=== PATIENT | female | born 1940 | race Caucasian/White ===

== ENCOUNTER → 2017-04-21 | Outpatient (CLI) | payer OTHER | LOC: BMCIMAGING 08:38 | PROVIDERS: ATTEND Internal Medicine | DX: Z12.31 Encounter for screening mammogram for malignant neoplasm of breast (principal) | CPT/HCPCS: G0202 ==

== ENCOUNTER → 2017-05-28 | Outpatient (CLI) | payer OTHER | LOC: BMCIMAGING 10:51 | PROVIDERS: ATTEND Internal Medicine | DX: N64.4 Mastodynia (principal) ==

== ENCOUNTER 2017-06-29 21:33 | Inpatient (IN) | payer OTHER ==
[2017-06-29] MEDS ORDERED: ONDANSETRON 4 MG/2 ML VIAL IVP ONE (21:59)
[2017-06-29] MEDS ORDERED: NS 1,000 ML IV ONE (21:59)
--- NOTE | 2017-06-29 22:01 | EDPHY ---
H & P Smoking Status: Former smoker Time Seen by Provider: 06/29/17 21:46 HPI/ROS: CHIEF COMPLAINT: Abdominal pain HISTORY OF PRESENT ILLNESS: Patient presents thinking she has symptoms which are identical to multiple previous bowel obstructions. She had pain starting today at 1900, followed by a bowel movement at 8:00 p.m. But then followed by nausea and no vomiting. She feels thirsty and dehydrated. Pain is mostly in lower abdomen and feels just like previous SBO. Worse with oral intake. Does not radiate. Not associated with urinary symptoms fever. No diarrhea. Mild to moderate now. She came in earlier than she has previously. REVIEW OF SYSTEMS: Eye: no change in vision ENT: no sore throat, chronic hard of hearing with her right hearing aid dysfunctional today Cardiac: no chest pain or syncope Pulmonary: no cough or SOB Abdomen: HPI. Musculoskeletal: no back pain Skin: no rash Neuro: no headache Constitutional: no fever : no urinary symptoms A comprehensive 10 point review of systems is otherwise negative aside from elements mentioned in the history of present illness. PAST MEDICAL HISTORY: Includes high cholesterol, hypothyroid, colon resection, hysterectomy. Bowel obstruction multiple times. Appendectomy and gallbladder surgery. Surgeon is Dr. Rolando Cobos Social history: Here with her daughter General Appearance: Alert and conversant, cooperative. Eyes: No scleral icterus. ENT, Mouth: Normal mucous membranes. Respiratory: Normal respiratory effort, breath sounds equal, lungs are clear to auscultation. Cardiovascular: Regular rate and rhythm. Gastrointestinal: Multiple well-healed abdominal lesions, bowel sounds are present, a little distended. Bilateral lower abdominal tenderness right greater than left without rebound or guarding. Neurological: Alert, face symmetric, normal motor and sensory in extremities. Skin: Warm and dry, no rashes. Musculoskeletal: No peripheral edema. Psychiatric: Not agitated. Emergency Department course/MDM: The Zofran 4 mg IV, normal saline IV, i-STAT and abdominal and pelvis CT with IV contrast to evaluate for possible bowel obstruction. 2300: preliminary interpretation of CT per myself shows SBO, discussed with patient, dilaudid 0.5mg IV for pain, IVF, NPO, admission, Dr. Lloyd to speak with surgeon relationship consultant for José Manuel Cobos. (Otoniel Alonzo) Constitutional: Initial Vital Signs Temperature (C) 36.4 C 06/29/17 21:35 Heart Rate 68 06/29/17 21:35 Respiratory Rate 18 06/29/17 21:35 Blood Pressure 163/83 H 06/29/17 21:35 O2 Sat (%) 98 06/29/17 21:35 O2 Delivery Mode Room Air Allergies/Adverse Reactions: No Known Allergies Allergy (Verified 12/16/15 20:36) Home Medications: Medication Instructions Recorded Estradiol [Vivelle-Dot 0.05MG (*)] 0.05 mg TD PRN PRN 12/04/11 Levothyroxine [Synthroid 50 mcg 50 mcg PO SUSA 12/04/11 (*)] [place]-3 Fatty Acids [Fish Oil 1000 1,000 mg PO DAILY 01/25/14 mg (*)] Rosuvastatin Calcium [Crestor 20mg 20 mg PO DAILY 01/25/14 (*)] Cyanocobalamin [Vitamin B12 (*)] 1,000 mcg PO DAILY 12/16/15 Multivitamins [Multivitamin (*)] 1 each PO DAILY 12/16/15 metFORMIN HCL [Glucophage 500 mg 500 mg PO BIDMEAL 12/17/15 (*)] Levothyroxine [Synthroid 75 mcg 75 mcg PO MOTUWETHFR 12/19/15 (*)] Hydrocodone/APAP 5/325 [[place] 1 tab PO Q4HRS PRN #20 tab 12/20/15 5/325 (*)] Medical Decision Making - Diagnostics Imaging: Discussed imaging studies w/ mechanic Radiologist - Diagnostics Imaging Results: Imaging Impressions Abdomen CT 06/29/17 22:07 Impression: 1. Findings consistent with small bowel obstruction are seen with a transition point at the approximate level of the distal jejunum in the midline in the lower abdomen. 2. See above report for additional findings. Results called and discussed with Dr. Lloyd on 06/29/2017 at 23:15 ED Course/Re-evaluation: 2314: The spoke with Dr. Duong about this patient. CT scan shows bowel obstruction. She will see and evaluate the patient. Plan is for admission for SBO. 2316: CT scan back Dr. Putnam called results to ak CT scan and pelvis with IV contrast shows SBO. Dr. Duong aware. (Kee Lloyd) Differential Diagnosis: Differential considered including but not limited to constipation, bowel obstruction, intestinal perforation, UTI (Otoniel Alonzo) - Data Points Laboratory Results: Laboratory Results 06/29/17 22:00 06/29/17 22:00 06/29/17 06/29/17 06/29/17 22:04 22:00 22:00 WBC 17.56 10^3/uL H 10^3/uL (3.80-9.50) RBC 4.72 10^6/uL 10^6/uL (4.18-5.33) Hgb 14.1 g/dL g/dL (12.6-16.3) POC Hgb 14.3 gm/dL gm/dL (12.6-16.3) Hct 42.4 % % (38.0-47.0) POC Hct 42 % % (38-47) MCV 89.8 fL fL (81.5-99.8) MCH 29.9 pg pg (27.9-34.1) MCHC 33.3 g/dL g/dL (32.4-36.7) RDW 12.9 % % (11.5-15.2) Plt Count 174 10^3/uL 10^3/uL (150-400) MPV 10.8 fL fL (8.7-11.7) Neut % (Auto) 80.6 % H % (39.3-74.2) Lymph % (Auto) 10.9 % L % (15.0-45.0) [place] % (Auto) 5.8 % % (4.5-13.0) Eos % (Auto) 1.6 % % (0.6-7.6) Baso % (Auto) 0.6 % % (0.3-1.7) Nucleat RBC Rel Count 0.0 % % (0.0-0.2) Absolute Neuts (auto) 14.15 10^3/uL H 10^3/uL (1.70-6.50) Absolute Lymphs (auto) 1.92 10^3/uL 10^3/uL (1.00-3.00) Absolute Monos (auto) 1.02 10^3/uL H 10^3/uL (0.30-0.80) Absolute Eos (auto) 0.28 10^3/uL 10^3/uL (0.03-0.40) Absolute Basos (auto) 0.10 10^3/uL 10^3/uL (0.02-0.10) Absolute Nucleated RBC 0.00 10^3/uL 10^3/uL (0-0.01) Immature Gran % 0.5 % % (0.0-1.1) Immature Gran # 0.09 10^3/uL 10^3/uL (0.00-0.10) POC Sodium 144 mEq/L mEq/L (135-145) Sodium 139 mEq/L mEq/L (135-145) POC Potassium 3.8 mEq/L mEq/L (3.3-5.0) Potassium 4.2 mEq/L mEq/L (3.5-5.2) POC Chloride 103 mEq/L mEq/L (97-110) Chloride 102 mEq/L mEq/L (97-110) Carbon Dioxide 26 mEq/l mEq/l (22-31) Anion Gap 11 mEq/L mEq/L (8-16) POC BUN 28 mg/dL H mg/dL (7-23) BUN 26 mg/dL H mg/dL (7-23) Creatinine 0.6 mg/dL mg/dL (0.6-1.0) POC Creatinine 0.8 mg/dL mg/dL (0.6-1.0) Estimated GFR > 60 Glucose 115 mg/dL H mg/dL (70-100) POC Glucose 128 mg/dL H mg/dL (70-100) Calcium 10.9 mg/dL H mg/dL (8.5-10.4) Phosphorus 3.6 mg/dL mg/dL (2.5-4.5) Medications Given: Discontinued Medications Hydromorphone HCl (Dilaudid) 0.5 mg IVP EDNOW ONE Stop: 06/29/17 23:04 Last Admin: 06/29/17 23:09 Dose: 0.5 mg Sodium Chloride (Ns) 1,000 mls @ 0 mls/hr IV EDNOW ONE; Wide Open PRN Reason: Protocol Stop: 06/29/17 22:00 Last Admin: 06/29/17 22:02 Dose: 1,000 mls Ondansetron HCl (Zofran) 4 mg IVP EDNOW ONE Stop: 06/29/17 22:00 Last Admin: 06/29/17 23:09 Dose: 4 mg Point of Care Test Results: 06/29/17 22:04 POC Sodium 144 POC Potassium 3.8 POC Chloride 103 POC BUN 28 H POC Creatinine 0.8 POC Glucose 128 H Departure - Departure Disposition: [facility] Inpatient Acute Clinical Impression: Bowel obstruction Qualifiers: Intestinal obstruction type: unspecified Intestinal obstruction extent: unspecified extent Qualified Code(s): K56.609 - Unspecified intestinal obstruction, unspecified as to partial versus complete obstruction Condition: Good
[2017-06-29 22:11] LABS: PLATELET COUNT 174 10^3/uL (150-400)
[2017-06-29] MEDS ORDERED: IOPAMIDOL (ISOVUE-300) 100 ML BTL ONE ×2 (22:20→22:48)
[2017-06-29] MEDS ORDERED: HYDROmorphONE/DILAUDID 1 MG/ML INJ IVP ONE (23:03)
[2017-06-29] MEDS ORDERED: HYDROmorphONE/DILAUDID 2 MG/ML INJ ONE (23:05)
[2017-06-29] MEDS ORDERED: ONDANSETRON 4 MG/2 ML VIAL IVP PRN (23:20)
--- NOTE | 2017-06-30 00:01 | GHP ---
[f rep st] HISTORY AND PHYSICAL DATE OF ADMISSION: 06/29/2017 CHIEF COMPLAINT: Small bowel obstruction. HISTORY OF PRESENT ILLNESS: The patient is a 77-year-old woman, well known to Dr. Cobos, who has had multiple abdominal surgeries. She had a normal bowel movement this afternoon and a small one with flatus this evening, but then started feeling abdominal pain, reminiscent of her previous obstruction. She had associated nausea, but no emesis, no fevers, no sick contacts. The only thing that is different is that she was passing flatus this evening. She had a CT scan, which showed a small bowel obstruction with a transition point at the distal jejunum. She is eager to speak with Dr. Cobos. PAST MEDICAL HISTORY: Diabetes mellitus, hypertension, hypothyroidism. PAST SURGICAL HISTORY: Includes colectomy, cholecystectomy, hysterectomy, appendectomy, lysis of adhesions. MEDICATIONS: Estradiol, Crestor, metformin, Synthroid. ALLERGIES: No known drug allergies. SOCIAL HISTORY: She does not smoke. Her daughter is with her. REVIEW OF SYSTEMS: 10-point review of systems negative. PHYSICAL EXAMINATION: VITAL SIGNS: 36.4, 68, 163/83, 18, 98%. GENERAL: Pleasant well-nourished woman, sitting up in exam bed. She is very well groomed. Her daughter is at bedside. HEENT: Normocephalic. She does have hearing deficits. Her right hearing aid is currently being worked on. Pupils equal and round. No scleral icterus. Mucous membranes dry. LUNGS: Clear to auscultation bilaterally. No increased work of breathing. CARDIAC: Regular rate. ABDOMEN: Hypoactive bowel sounds. She has multiple abdominal incisions that are all healed. She reports that her abdomen is the same girth, although she appears slightly distended to me. She is soft and minimally tender. SKIN: Warm and dry. No obvious rashes. PSYCH: Mood and affect normal. NEURO: Grossly intact. RESULTS REVIEWED: I personally reviewed the results of her CT scan, and can see fluid-filled loops of small bowel, decompressed distally. IMPRESSION AND PLAN: A 77-year-old woman with a partial small bowel obstruction. We will keep her n.p.o. Dr. Cobos will see her in the morning. I have consulted the hospitalist to assist with her comorbidities. /[id number]/MODL MTDD
[2017-06-30] MEDS ORDERED: HYDROmorphONE/DILAUDID 1 MG/ML INJ IVP ONE ×2 (01:02→01:04)
[2017-06-30] MEDS ORDERED: PROMETHAZINE HCL 25 MG/ML INJ IVP ONE (01:03)
[2017-06-30] MEDS ORDERED: HYDROmorphONE/DILAUDID 2 MG/ML INJ ONE (01:06)
[2017-06-30] MEDS: D5W 1/2 NS W/ 20 KCl/L 1,000 ML IV SCH (01:13)
[2017-06-30] MEDS ORDERED: D50W 25 GM/50 ML SYR IVP PRN (08:07)
--- NOTE | 2017-06-30 08:21 | PDHOSCONS ---
History and Physical - Chief Complaint Abdominal pain. Hospitalist consult for medical management - History of Present Illness Date of service 06/30/2017 Hospitalist consult requested by Dr. Duong. Reason for consult: Medical management. HPI - pleasant 77-year-old female with history of prediabetes, hypothyroidism, hyperlipidemia who presents with with complaints of acute lower abdominal pain, nausea vomiting admitted for SBO. Medical issues by problem: 1. preDM - patient currently taking metformin twice daily. She reports blood sugars range low 120s in the morning. no polydipsia/polyuria. 2. HTN - patient previously treated with MORRIS-inhibitor and diuretic therapy. She reports that her blood pressures despite this have remained elevated. She denies any chest pain headache no shortness of breath. 3. HLD - on statin therapy 4. hypothyroidism - patient reports control on levothyroxine supplementation. But no increased fatigue or change in energy. History Information - Allergies/Home Medication List Allergies/Adverse Reactions: No Known Allergies Allergy (Verified 12/16/15 20:36) Home Medications: Levothyroxine [Synthroid 50 mcg (*)] 50 mcg PO SUSA 12/04/11 [Last Taken ] [place]-3 Fatty Acids [Fish Oil 1000 mg (*)] 1,000 mg PO DAILY 01/25/14 [Last Taken 06/29/17] Rosuvastatin Calcium [Crestor 20mg (*)] 20 mg PO DAILY 01/25/14 [Last Taken 10/11] Cyanocobalamin [Vitamin B12 (*)] 1,000 mcg PO DAILY 12/16/15 [Last Taken ] Multivitamins [Multivitamin (*)] 1 each PO DAILY 12/16/15 [Last Taken 06/29/17] metFORMIN HCL [Glucophage 500 mg (*)] 500 mg PO BIDMEAL 12/17/15 [Last Taken 10/11 18:00] Levothyroxine [Synthroid 75 mcg (*)] 75 mcg PO MOTUWETHFR 12/19/15 [Last Taken 06/29/17] Tretinoin [Retin-A] 1 loli TP DAILY PRN 06/30/17 [Last Taken Unknown] I have personally reviewed and updated: family history, medical history, social history, surgical history - Past Medical History Additional medical history: HTN, HLD, preDM. Hypothyroidism, history of SBO x 2 - Surgical History Additional surgical history: Hysterectomy, cholecystectomy, appendectomy, lysis of adhesions - Family History Additional family history: Sister with breast cancer - Social History Smoking Status: Former smoker Alcohol Use: None Drug Use: None Additional social history: Patient is . Review of Systems Review of Systems: ROS: 10pt was reviewed & negative except for what was stated in HPI & below Physical Exam Physical Exam: Selected Entries 06/29/17 21:35 Blood Pressure Automatic Method Heart Rate 68 Respiratory 18 Rate O2 Sat (%) 98 Temperature (C) 36.4 C Blood Pressure 163/83 H Mean Arterial 109 H Pressure (MAP) O2 Delivery Room Air Mode Temperature Oral Source Temp Pulse Resp BP Pulse Ox 36.7 C 53 L 16 122/75 H 99 06/30/17 02:04 06/30/17 06:00 06/30/17 06:00 06/30/17 06:00 06/30/17 06:00 O2 (L/minute) 2 Constitutional: no apparent distress, No uncomfortable Eyes: PERRL, anicteric sclera, EOMI (Grossly intact) Ears, Nose, Mouth, Throat: dry mucous membranes, No poor dentition Cardiovascular: regular rate and rhythym, no murmur, rub, or gallop, No edema Peripheral Pulses: 1+: dorsalis-pedis (R), dorsalis-pedis (L) Respiratory: no respiratory distress, no rales or rhonchi, clear to auscultation Gastrointestinal: soft, non-tender abdomen, no palpable masses, distension, other (Hypoactive bowel sounds), No tenderness, No guarding Genitourinary: no bladder tenderness, No philippe in urethra Skin: warm, normal color, no rashes or abrasions Musculoskeletal: full muscle strength, No generalized weakness Neurologic: AAOx3, sensation intact bilaterally, other (Grossly nonfocal), No facial droop Psychiatric: interacting appropriately, not anxious, not encephalopathic, thought process linear Lab Data & Imaging Review 06/29/17 22:00 06/30/17 06:30 WBC 17.56 10^3/uL (3.80-9.50) H 06/29/17 22:00 RBC 4.72 10^6/uL (4.18-5.33) 06/29/17 22:00 Hgb 14.1 g/dL (12.6-16.3) 06/29/17 22:00 POC Hgb 14.3 gm/dL (12.6-16.3) 06/29/17 22:04 Hct 42.4 % (38.0-47.0) 06/29/17 22:00 POC Hct 42 % (38-47) 06/29/17 22:04 MCV 89.8 fL (81.5-99.8) 06/29/17 22:00 MCH 29.9 pg (27.9-34.1) 06/29/17 22:00 MCHC 33.3 g/dL (32.4-36.7) 06/29/17 22:00 RDW 12.9 % (11.5-15.2) 06/29/17 22:00 Plt Count 174 10^3/uL (150-400) 06/29/17 22:00 MPV 10.8 fL (8.7-11.7) 06/29/17 22:00 Neut % (Auto) 80.6 % (39.3-74.2) H 06/29/17 22:00 Lymph % (Auto) 10.9 % (15.0-45.0) L 06/29/17 22:00 [place] % (Auto) 5.8 % (4.5-13.0) 06/29/17 22:00 Eos % (Auto) 1.6 % (0.6-7.6) 06/29/17 22:00 Baso % (Auto) 0.6 % (0.3-1.7) 06/29/17 22:00 Nucleat RBC Rel Count 0.0 % (0.0-0.2) 06/29/17 22:00 Absolute Neuts (auto) 14.15 10^3/uL (1.70-6.50) H 06/29/17 22:00 Absolute Lymphs (auto) 1.92 10^3/uL (1.00-3.00) 06/29/17 22:00 Absolute Monos (auto) 1.02 10^3/uL (0.30-0.80) H 06/29/17 22:00 Absolute Eos (auto) 0.28 10^3/uL (0.03-0.40) 06/29/17 22:00 Absolute Basos (auto) 0.10 10^3/uL (0.02-0.10) 06/29/17 22:00 Absolute Nucleated RBC 0.00 10^3/uL (0-0.01) 06/29/17 22:00 Immature Gran % 0.5 % (0.0-1.1) 06/29/17 22:00 Immature Gran # 0.09 10^3/uL (0.00-0.10) 06/29/17 22:00 POC Sodium 144 mEq/L (135-145) 06/29/17 22:04 Sodium 144 mEq/L (135-145) 06/30/17 06:30 POC Potassium 3.8 mEq/L (3.3-5.0) 06/29/17 22:04 Potassium 4.9 mEq/L (3.5-5.2) 06/30/17 06:30 POC Chloride 103 mEq/L (97-110) 06/29/17 22:04 Chloride 112 mEq/L (97-110) H D 06/30/17 06:30 Carbon Dioxide 24 mEq/l (22-31) 06/30/17 06:30 Anion Gap 8 mEq/L (8-16) 06/30/17 06:30 POC BUN 28 mg/dL (7-23) H 06/29/17 22:04 BUN 18 mg/dL (7-23) 06/30/17 06:30 Creatinine 0.6 mg/dL (0.6-1.0) 06/30/17 06:30 POC Creatinine 0.8 mg/dL (0.6-1.0) 06/29/17 22:04 Estimated GFR > 60 06/30/17 06:30 Glucose 147 mg/dL (70-100) H 06/30/17 06:30 POC Glucose 128 mg/dL (70-100) H 06/29/17 22:04 Calcium 8.8 mg/dL (8.5-10.4) D 06/30/17 06:30 Phosphorus 3.6 mg/dL (2.5-4.5) 06/29/17 22:00 Imaging Review: CT Abd Pel W IV Contrast ___ CT Scan of the Abdomen and Pelvis With Contrast Indication: Abdominal pain in a 77-year-old female with a history of prior abdominal surgeries and previous small bowel obstruction comparison to the prior CT the abdomen and pelvis December 16, 2015. Technique: Multidetector CT images of the abdomen and pelvis were obtained following the uneventful intravenous administration of 85 mL Isovue-300 contrast. Axial images are obtained at 5 mm intervals and reformatted at 1.5 mm thickness. The examination is reviewed on the workstation at multiple window/level settings. Sagittal and coronal reformations are performed. Dose reduction techniques were utilized for this examination. Abdomen: Lung bases: Normal. No pleural fluid. Dilated small bowel loops are seen involving the jejunum with the point of transition near the junction of the jejunum with the ileum in the low abdomen. The distal small bowel is decompressed. No free air is seen and no ascites is identified. There is mild enhancement of the oliveros of the dilated small bowel loops. Scattered surgical clips are seen throughout the abdomen. Liver: Normal. Biliary system: The gallbladder is surgically absent. There is minimal intrahepatic biliary ductal dilatation. Spleen: Normal. Pancreas: Normal. Adrenals: Normal. Kidneys: No obstruction or solid masses. Abdominal Aorta: No aneurysm. No bowel obstruction, ascites, or retroperitoneal lymphadenopathy. CT Pelvis Findings: The bladder contour is normal. Extensive sigmoid diverticulosis is seen without diverticulitis. Surgical clips are seen in the right lower quadrant compatible with a history of prior appendectomy. Degenerative changes are seen in the spine. Impression: 1. Findings consistent with small bowel obstruction are seen with a transition point at the approximate level of the distal jejunum in the midline in the lower abdomen. 2. See above report for additional findings. Results called and discussed with Dr. Lloyd on 06/29/2017 at 23:15 Assessment & Plan Assessment: 77 yo F admitted with SBO hospitalist consult for medical management. pre-DM - mildly elevated sugars. Patient will be placed on a low-dose sliding scale. Accu-Cheks a.c. HS while NPO. Resume metformin when diet advanced. Benign essential hypertension - currently NPO. Hydralazine p.r.n. HLD - holding statin at this time. Hypothyroidism - resume levothyroxine 1 diet is advanced. Small Bowel obstruction (Acute) - as per surgical team. At this time patient is not requiring NG tube decompression and her pain has improved. FEN - IVF as per primary team. monitor BS with D5 in fluid. electrolyte monitoring and replacement prn. NPO status. PPX - SCDs. anticoagulation as per surgery team. Thank you for consultation we will continue to follow along with you.
[2017-06-30] MEDS ORDERED: hydrALAZINE 20 MG/ML VIAL IVP PRN (08:27)
[2017-06-30] MEDS ORDERED: HYDROmorphONE/DILAUDID 1 MG/ML INJ IVP PRN (08:31)
[2017-06-30] MEDS ORDERED: HYDROmorphONE/DILAUDID 2 MG/ML INJ IVP PRN (11:06)
[2017-06-30] MEDS: INSULIN LISPRO 100 UNIT/ML SC SCH ×2 (13:12→18:00)
--- NOTE | 2017-06-30 15:59 | PDMN ---
Medical Necessity Medical necessity: Change to IP, as of 06/30/17, per PA; los >2 mn for ongoing management of SBO requiring further monitoring, bowel rest, IVFs & possible surgical intervention; hx htn; per progress note & order 06/30/17
--- NOTE | 2017-06-30 17:50 | SOAPPROG ---
SOAP Progress Note Assessment/Plan: Assessment: 77-YEAR-OLD FEMALE WITH RECURRENT SMALL BOWEL OBSTRUCTION/STATUS POST COLECTOMY AND MULTIPLE SMALL-BOWEL OBSTRUCTIONS WHICH HAVE RESOLVED ON THEIR OWN. SHE DID HAVE SURGERY 2 YEARS AGO FOR SMALL BOWEL OBSTRUCTION WITH MULTIPLE ADHESIONS AND COUNTER ABDOMEN SOFT MINIMALLY TENDER WITH POSITIVE BOWEL SOUNDS/NO EMESIS OR DIARRHEA/ SMALL BM YESTERDAY CHEST CLEAR COR REGULAR RHYTHM Plan: LAPAROSCOPY AND/OR LAPAROTOMY FOR SMALL BOWEL OBSTRUCTION IN THE A.M./ RISKS AND OPTIONS FULLY DISCUSSED 06/30/17 17:49 Objective: Vital Signs Temp Pulse Resp BP Pulse Ox 36.4 C 59 L 18 98/67 L 94 06/30/17 15:14 06/30/17 15:14 06/30/17 15:14 06/30/17 15:14 06/30/17 15:14 ICD10 Worksheet Patient Problems: Problems Problem Status Onset Bowel obstruction Acute Abdominal pain Active Essential hypertension Active Hyperglycemia Active Hypothyroidism Active
[2017-07-01] MEDS: D5W 1/2 NS W/ 20 KCl/L 1,000 ML IV SCH (06:11)
--- NOTE | 2017-07-01 08:24 | SOAPPROG ---
SOAP Progress Note Assessment/Plan: Assessment: 77 y/o female with partial small bowel obstruction S: Doing pretty well today. Denies n/v. Mild tenderness in abdomen. Passing flatus, but no BM today. O: Afebrile Alert No WOB Abdomen: softly distended, mild tenderness to palpation, +BS Plan: pending abdominal xray, plan for surgery this afternoon for diagnostic laparoscopy. 07/01/17 08:20 Objective: Vital Signs Temp Pulse Resp BP Pulse Ox 36.6 C 59 L 16 151/80 H 93 07/01/17 07:53 07/01/17 07:53 07/01/17 07:53 07/01/17 07:53 07/01/17 07:53 06/30/17 07/01/17 07/02/17 05:59 05:59 05:59 Intake Total 0 1005 Output Total 1500 Balance -1500 1005 ICD10 Worksheet Patient Problems: Problems Problem Status Onset Bowel obstruction Acute Abdominal pain Active Essential hypertension Active Hyperglycemia Active Hypothyroidism Active
[2017-07-01] MEDS: INSULIN LISPRO 100 UNIT/ML SC SCH ×3 (08:39→18:11)
[2017-07-01] MEDS ORDERED: cefOXitin SODIUM 2 GM in STERILE WATER INJ 21 ML IV ONE (11:00)
[2017-07-01] MEDS ORDERED: LR 1,000 ML IV ONE (13:20)
--- NOTE | 2017-07-01 14:11 | HOSPPROG ---
Hospitalist Progress Note Assessment/Plan: * recurrent partial SBO * diagnostic laparoscopy today * early diabetes * hold metformin * hyperlipidemia Subjective: feels better. passing gas Objective: Vital Signs Temp Pulse Resp BP Pulse Ox 36.5 C 61 16 167/75 H 93 07/01/17 14:05 07/01/17 14:05 07/01/17 14:05 07/01/17 14:05 07/01/17 14:05 06/30/17 07/01/17 07/02/17 05:59 05:59 05:59 Intake Total 0 1005 Output Total 1500 Balance -1500 1005 - Physical Exam Constitutional: no apparent distress, appears nourished, not in pain Eyes: anicteric sclera, EOMI Respiratory: no respiratory distress Neurologic: AAOx3 Psychiatric: interacting appropriately, not anxious, not encephalopathic, thought process linear ICD10 Worksheet Patient Problems: Problems Problem Status Onset Bowel obstruction Acute Abdominal pain Active Essential hypertension Active Hyperglycemia Active Hypothyroidism Active
[2017-07-01] MEDS ORDERED: HEPARIN 1000 UNIT/1 ML MDV ONE (14:55)
[2017-07-01] MEDS ORDERED: BUPIVACAINE 0.5% 10 ML SDV ONE ×2 (14:55)
[2017-07-01] MEDS ORDERED: ceFAZolin 1 GM/5 ML SYR ONE (14:56)
--- NOTE | 2017-07-01 15:07 | ASMTCMCOM ---
CM Note CM Note Notes: Patient admitted for SBO. She will have an diagnostic laparotomy with Dr Cobos today. She has a history of bowel issues and surgeries. Patient lives independently and has a supportive daughter nearby. I do not anticipate any discharge needs, but Case Management can assist if any arise. Date Signed: 07/01/2017 03:06 PM Electronically Signed By:Velma Becerra RN
[2017-07-01] MEDS ORDERED: MIDAZOLAM 2 MG/2 ML VIAL IVP ONE (15:25)
--- NOTE | 2017-07-01 15:29 | PDANEPAE ---
ANE History of Present Illness Exploratory laparoscopy possible laparotomy ANE Past Medical History - Cardiovascular History Hx Hypertension: No Hx Arrhythmias: No Hx Chest Pain: No Hx Coronary Artery / Peripheral Vascular Disease: No - Pulmonary History Hx COPD: No Hx Asthma/Reactive Airway Disease: No Hx Recent Upper Respiratory Infection: No Hx Oxygen in Use at Home: No Hx Sleep Apnea: No Sleep Apnea Screening Result - Last Documented: Negative - Endocrine History Hx Diabetes: Yes Hypothyroid: No Obesity: no - Chronic Pain History Chronic Pain: No ANE Review of Systems Review of systems is: negative Review of Systems: - Exercise capacity METS (RN): 4 METS ANE Patient History - Allergies Allergies/Adverse Reactions: No Known Allergies Allergy (Verified 12/16/15 20:36) - Home Medications Home Medications: Levothyroxine [Synthroid 50 mcg (*)] 50 mcg PO SUSA 12/04/11 [Last Taken ] [place]-3 Fatty Acids [Fish Oil 1000 mg (*)] 1,000 mg PO DAILY 01/25/14 [Last Taken 06/29/17] Rosuvastatin Calcium [Crestor 20mg (*)] 20 mg PO DAILY 01/25/14 [Last Taken 10/11] Cyanocobalamin [Vitamin B12 (*)] 1,000 mcg PO DAILY 12/16/15 [Last Taken ] Multivitamins [Multivitamin (*)] 1 each PO DAILY 12/16/15 [Last Taken 06/29/17] metFORMIN HCL [Glucophage 500 mg (*)] 500 mg PO BIDMEAL 12/17/15 [Last Taken 10/11 18:00] Levothyroxine [Synthroid 75 mcg (*)] 75 mcg PO MOTUWETHFR 12/19/15 [Last Taken 06/29/17] Tretinoin [Retin-A] 1 loli TP DAILY PRN 06/30/17 [Last Taken Unknown] - NPO status NPO Status: no food or drink >8 hours NPO Since - Liquids (Date): 06/30/17 NPO Since - Liquids (Time): 15:00 NPO Since - Solids (Date): 06/30/17 NPO Since - Solids (Time): 15:00 - Smoking Hx Smoking Status: Former smoker - Alcohol Use Alcohol Use: None - Family Anes Hx Family Anes Hx: none ANE Labs/Vital Signs - Labs Result Diagrams: 06/29/17 22:00 06/30/17 06:30 - Vital Signs Blood Pressure: 167/75 Heart Rate: 61 Respiratory Rate: 16 O2 Sat (%): 93 Height: 167.64 cm Weight: 58.967 kg ANE Physical Exam - Airway Neck exam: FROM Mallampati Score: Class 2 Mouth exam: normal dental/mouth exam - Pulmonary Pulmonary: no respiratory distress - Cardiovascular Cardiovascular: regular rate and rhythym - ASA Status ASA Status: III ANE Anesthesia Plan Anesthesia Plan: general endotracheal anesthesia
[2017-07-01] MEDS ORDERED: cefOXitin SODIUM 1 GM in STERILE WATER INJ 10.5 ML IV ONE (15:32)
[2017-07-01] MEDS ORDERED: PROPOFOL/EMULSION 500 MG/50 ML BOTTLE IV ONE (15:42)
[2017-07-01] MEDS ORDERED: fentaNYL 250 MCG/5 ML INJ ONE (15:42)
[2017-07-01] MEDS ORDERED: PROPOFOL 200 MG/20 ML VIAL ONE ×3 (15:42→18:18)
[2017-07-01] MEDS ORDERED: ONDANSETRON 4 MG/2 ML VIAL ONE (17:17)
[2017-07-01] MEDS ORDERED: LIDOCAINE 2% JELLY 5 ML TUBE ONE (17:17)
[2017-07-01] MEDS ORDERED: DEXAMETHASONE 4 MG/ML VIAL ONE (17:17)
[2017-07-01] MEDS ORDERED: GLYCOPYRROLATE 0.2 MG/1 ML VIAL ONE (17:17)
[2017-07-01] MEDS ORDERED: ROCURONIUM 50 MG/5 ML VIAL ONE ×2 (17:17)
[2017-07-01] MEDS ORDERED: HYDROmorphONE/DILAUDID 2 MG/ML INJ ONE (17:58)
[2017-07-01] MEDS ORDERED: fentaNYL 100 MCG/2 ML INJ ONE (18:18)
[2017-07-01] MEDS ORDERED: KETOROLAC 30 MG/1 ML SDV ONE (18:43)
[2017-07-01] MEDS ORDERED: SUGAMMADEX SODIUM 200 MG/2 ML VIAL IVP ONE (18:57)
--- NOTE | 2017-07-01 19:17 | POSTOPPROG ---
Post Op Note Date of Operation: 07/01/17 Surgeon: Rolando Cobos Anesthesiologist: KEVIN Anesthesia: GET(General Endotracheal) Pre-op Diagnosis: SBO Post-op Diagnosis: SAME Indication: PAIN Procedure: LAPAROSCOPY, LAPAROTOMY, LYSIS ADHESIONS Findings: DIFFUSE ADHESIONS WITH MULTIPLE TIGHT AREAS Inf/Abcess present in the surg proc area at time of surgery?: No Depth: Organ Space EBL: 50-100 Complications: 0
[2017-07-01] MEDS ORDERED: HYDROmorphONE/DILAUDID 2 MG/ML INJ IVP PRN ×2 (19:18→19:23)
[2017-07-01] MEDS ORDERED: PROMETHAZINE HCL 25 MG/ML INJ IVP PRN (19:23)
[2017-07-01] MEDS ORDERED: NALOXONE HCL 0.4 MG/ML INJ IVP PRN (19:23)
[2017-07-01] MEDS ORDERED: ONDANSETRON 4 MG/2 ML VIAL IVP PRN (19:23)
[2017-07-01] MEDS ORDERED: DIAZEPAM 5 MG/ML 1 ML SYR IVP PRN (19:23)
[2017-07-01] MEDS ORDERED: fentaNYL 100 MCG/2 ML INJ IVP PRN (19:23)
[2017-07-01] MEDS: cefOXitin SODIUM 1 GM in STERILE WATER INJ 10.5 ML IV SCH (22:05)
[2017-07-02] MEDS: KETOROLAC 15 MG/1 ML SDV IVP SCH ×4 (00:07→17:50)
[2017-07-02] MEDS: cefOXitin SODIUM 1 GM in STERILE WATER INJ 10.5 ML IV SCH ×4 (04:43→21:50)
[2017-07-02 05:35] LABS: PLATELET COUNT 157 10^3/uL (150-400)
[2017-07-02] MEDS: INSULIN LISPRO 100 UNIT/ML SC SCH ×3 (06:18→18:46)
[2017-07-02] MEDS: D5W 1/2 NS W/ 20 KCl/L 1,000 ML IV SCH ×2 (06:19→17:42)
[2017-07-02] MEDS: ENOXAPARIN 40 MG/0.4 ML SYR SC SCH (08:08)
--- NOTE | 2017-07-02 08:43 | SOAPPROG ---
SOAP Progress Note Assessment/Plan: Assessment: 77 y/o female with partial small bowel obstruction Now s/p laparoscopy/laparotomy with lysis of adhesions S: Doing pretty well today. Getting up out of bed when I saw her. Denies n/ v. Mild tenderness in abdomen. No flatus or BM yet. Eager to start drinking fluids. O: Afebrile Alert No WOB Abdomen: softly distended, mild tenderness to palpation, no bowel sounds yet NG tube to suction with about 100cc out. Plan: Discontinue philippe catheter. Continue NG tube to suction. NPO for now. 07/02/17 08:43 Objective: Vital Signs Temp Pulse Resp BP Pulse Ox 37.3 C 66 20 144/67 H 98 07/02/17 07:24 07/02/17 07:24 07/02/17 07:24 07/02/17 07:24 07/02/17 07:24 Laboratory Results 07/02/17 05:06 07/02/17 05:06 07/01/17 07/02/17 07/03/17 05:59 05:59 05:59 Intake Total 0 3369.5 195.5 Output Total 1500 800 300 Balance -1500 2569.5 -104.5 ICD10 Worksheet Patient Problems: Problems Problem Status Onset Bowel obstruction Acute Abdominal pain Active Essential hypertension Active Hyperglycemia Active Hypothyroidism Active
--- NOTE | 2017-07-02 10:15 | HOSPPROG ---
Hospitalist Progress Note Assessment/Plan: #Recurrent SBO: s/p lap, adhesion lysis 07/01 -NPO, NG to suction #pre-Diabetes: metformin #HLD: statin once taking po #Hypothyroidism: LT4 once taking PO #HTN: PRN IV hydral #Diet: NPO Please call if any questions Subjective: having small amount flatus. No N/V Objective: Vital Signs Temp Pulse Resp BP Pulse Ox 37.3 C 66 20 144/67 H 98 07/02/17 07:24 07/02/17 07:24 07/02/17 07:24 07/02/17 07:24 07/02/17 07:24 Laboratory Results 07/02/17 05:06 07/02/17 05:06 07/01/17 07/02/17 07/03/17 05:59 05:59 05:59 Intake Total 0 3369.5 195.5 Output Total 1500 800 300 Balance -1500 2569.5 -104.5 - Physical Exam Constitutional: no apparent distress Eyes: PERRL Ears, Nose, Mouth, Throat: moist mucous membranes, other (NG in place) Cardiovascular: regular rate and rhythym Respiratory: no respiratory distress Gastrointestinal: tenderness (mild TTP), other (quiet BS throughout) Skin: warm Musculoskeletal: full muscle strength Neurologic: AAOx3 Psychiatric: interacting appropriately ICD10 Worksheet Patient Problems: Problems Problem Status Onset Abdominal pain Active Hypothyroidism Active Essential hypertension Active Hyperglycemia Active Bowel obstruction Acute
[2017-07-02] MEDS ORDERED: ALBUMIN 5% 1,000 ML IV ONE (18:30)
[2017-07-03] MEDS: KETOROLAC 15 MG/1 ML SDV IVP SCH ×5 (00:58→23:00)
[2017-07-03] MEDS: INSULIN LISPRO 100 UNIT/ML SC SCH ×3 (07:45→18:16)
--- NOTE | 2017-07-03 08:41 | HOSPPROG ---
Hospitalist Progress Note Assessment/Plan: #Recurrent SBO: s/p lap, adhesion lysis 07/01 -BM yesterday. Trial clears today #pre-Diabetes: metformin once taking PO #HLD: statin once taking po #Hypothyroidism: LT4 once taking PO #HTN: PRN IV hydral #Diet: clears Please call if any questions Subjective: 800cc out of NG last night. BM yesterday Objective: Vital Signs Temp Pulse Resp BP Pulse Ox 36.9 C 65 16 135/69 H 94 07/03/17 07:49 07/03/17 07:49 07/03/17 07:49 07/03/17 07:49 07/03/17 07:49 Laboratory Results 07/02/17 05:06 07/02/17 05:06 07/02/17 07/03/17 07/04/17 05:59 05:59 06:59 Intake Total 3369.5 1253.5 Output Total 800 1900 Balance 2569.5 -646.5 - Physical Exam Constitutional: no apparent distress Eyes: PERRL Ears, Nose, Mouth, Throat: other (NG in place) Cardiovascular: regular rate and rhythym, no murmur, rub, or gallop Respiratory: no respiratory distress, no rales or rhonchi Gastrointestinal: distension (no TTP or rebound) Genitourinary: no bladder fullness Skin: warm Musculoskeletal: full muscle strength Neurologic: AAOx3, CN II-XII Intact Psychiatric: interacting appropriately ICD10 Worksheet Patient Problems: Problems Problem Status Onset Bowel obstruction Acute Abdominal pain Active Essential hypertension Active Hyperglycemia Active Hypothyroidism Active
[2017-07-03] MEDS: D5W 1/2 NS W/ 20 KCl/L 1,000 ML IV SCH (08:44)
[2017-07-03] MEDS: ENOXAPARIN 40 MG/0.4 ML SYR SC SCH (08:44)
[2017-07-03] MEDS ORDERED: ZOLPIDEM TARTRATE 5 MG TAB PO PRN (11:15)
--- NOTE | 2017-07-03 11:51 | SOAPPROG ---
SOAP Progress Note Assessment/Plan: Assessment: 77-YEAR-OLD FEMALE WITH RECURRENT SMALL BOWEL OBSTRUCTION/STATUS POST COLECTOMY AND MULTIPLE SMALL-BOWEL OBSTRUCTIONS WHICH HAVE RESOLVED ON THEIR OWN. SHE DID HAVE SURGERY 2 YEARS AGO FOR SMALL BOWEL OBSTRUCTION WITH MULTIPLE ADHESIONS AND COUNTER ABDOMEN SOFT MINIMALLY TENDER WITH POSITIVE BOWEL SOUNDS/NO EMESIS OR DIARRHEA/ SMALL BM YESTERDAY CHEST CLEAR COR REGULAR RHYTHM Plan: LAPAROSCOPY AND/OR LAPAROTOMY FOR SMALL BOWEL OBSTRUCTION IN THE A.M./ RISKS AND OPTIONS FULLY DISCUSSED 06/30/17 17:49 07/03/17 11:50 STATUS POST EXTENSIVE ADHESIOLYSIS/WOUND OKAY/ABDOMEN SOFT/POSITIVE BOWEL SOUNDS /SOME FLATUS AND BM AFEBRILE/NG LARGE OUTPUT LAST NIGHT BUT A MUCH LESS TODAY AND TOLERATING IT CLAMPED WILL TRY CLEAR LIQUIDS AND DC NG OF TOLERATING Objective: Vital Signs Temp Pulse Resp BP Pulse Ox 37.1 C 67 20 102/62 90 L 07/03/17 11:23 07/03/17 11:23 07/03/17 11:23 07/03/17 11:23 07/03/17 11:23 Laboratory Results 07/02/17 05:06 07/02/17 05:06 07/02/17 07/03/17 07/04/17 05:59 05:59 06:59 Intake Total 3369.5 1253.5 Output Total 800 1900 Balance 2569.5 -646.5 ICD10 Worksheet Patient Problems: Problems Problem Status Onset Bowel obstruction Acute Abdominal pain Active Essential hypertension Active Hyperglycemia Active Hypothyroidism Active
--- NOTE | 2017-07-03 14:51 | ASMTCMCOM ---
CM Note CM Note Notes: Spoke w/RN, plan remains the same, she talita dc home w/support of dtr when medically stable. CM available for any changes. DC Plan: Independent Date Signed: 07/03/2017 02:50 PM Electronically Signed By:Roslyn Borges RN
[2017-07-04] MEDS: KETOROLAC 15 MG/1 ML SDV IVP SCH ×2 (06:33→12:06)
[2017-07-04] MEDS: INSULIN LISPRO 100 UNIT/ML SC SCH ×2 (08:15→11:15)
[2017-07-04] MEDS: ENOXAPARIN 40 MG/0.4 ML SYR SC SCH (09:29)
--- NOTE | 2017-07-04 10:15 | POSTANESTH ---
Post Anesthetic Evaluation Cardiovascular Status: Normal, Stable Respiratory Status: Normal, Stable Level of Consciousness/Mental Status: Can Participate in Eval Pain Control: Adequate, Prn Tx Ordered Nausea/Vomiting Control: Adequate, Prn Tx Ordered Complications Possibly Related to Anesthesia: None Noted
[2017-07-04 11:14] VITALS: BP 159/77; PULSE 67; RESP 18; TEMP 98; O2SAT 96
--- NOTE | 2017-07-04 11:48 | SOAPPROG ---
SOAP Progress Note Assessment/Plan: Assessment: 77-YEAR-OLD FEMALE WITH RECURRENT SMALL BOWEL OBSTRUCTION/STATUS POST COLECTOMY AND MULTIPLE SMALL-BOWEL OBSTRUCTIONS WHICH HAVE RESOLVED ON THEIR OWN. SHE DID HAVE SURGERY 2 YEARS AGO FOR SMALL BOWEL OBSTRUCTION WITH MULTIPLE ADHESIONS AND COUNTER ABDOMEN SOFT MINIMALLY TENDER WITH POSITIVE BOWEL SOUNDS/NO EMESIS OR DIARRHEA/ SMALL BM YESTERDAY CHEST CLEAR COR REGULAR RHYTHM Plan: LAPAROSCOPY AND/OR LAPAROTOMY FOR SMALL BOWEL OBSTRUCTION IN THE A.M./ RISKS AND OPTIONS FULLY DISCUSSED 06/30/17 17:49 07/03/17 11:50 STATUS POST EXTENSIVE ADHESIOLYSIS/WOUND OKAY/ABDOMEN SOFT/POSITIVE BOWEL SOUNDS /SOME FLATUS AND BM AFEBRILE/NG LARGE OUTPUT LAST NIGHT BUT A MUCH LESS TODAY AND TOLERATING IT CLAMPED WILL TRY CLEAR LIQUIDS AND DC NG OF TOLERATING 07/04/17 11:47 LABS OKAY/AFEBRILE/WOUND OKAY/ABDOMEN SOFT WITH POSITIVE BOWEL SOUNDS, SLIGHTLY DISTENDED/POSITIVE FLATUS AND BOWEL MOVEMENT HOME TODAY IF EATING WELL Objective: Vital Signs Temp Pulse Resp BP Pulse Ox 36.7 C 67 18 159/77 H 96 07/04/17 11:10 07/04/17 11:10 07/04/17 11:10 07/04/17 11:10 07/04/17 11:10 Laboratory Results 07/04/17 04:51 07/04/17 04:51 07/03/17 07/04/17 07/05/17 04:59 05:59 05:59 Intake Total Output Total 700 Balance -700 ICD10 Worksheet Patient Problems: Problems Problem Status Onset Bowel obstruction Acute Abdominal pain Active Essential hypertension Active Hyperglycemia Active Hypothyroidism Active
--- NOTE | 2017-07-04 18:02 | ASMTLACE ---
HERMELINDOE Length of stay for Answers: 4-6 days current admission Acuity / Level of Answers: Yes Care: Did the patient have an inpatient admission? Comorbidities - select Answers: Other Notes: rectal prolapse all that apply # of Emergency department Answers: 1-2 visits in the last 6 months Score: 9 Date Signed: 07/04/2017 03:15 PM Electronically Signed By:Selena Ayala RN
--- NOTE | 2017-07-05 12:05 | GDS ---
[f rep st] DISCHARGE SUMMARY DISCHARGE DIAGNOSES: 1. Recurrent small bowel obstruction, status post laparoscopic adhesion lysis. 2. Prediabetes. 3. Hyperlipidemia. 4. Hypothyroidism. 5. Hypertension. HISTORY OF PRESENT ILLNESS: A pleasant 77-year-old female with history of prediabetes, hypothyroidis m, who is known to Dr. Cobos, who has had multiple abdominal surgeries. She had a normal bowel movem ent day of admission, but then started feeling abdominal pain reminding her prior obstruction. She h as associated nausea, but no emesis. No fevers or ill contacts. She had a CT scan that showed small bowel obstruction with a transition point at the distal jejunum. HOSPITAL COURSE BY PROBLEM: 1. Recurrent small bowel obstruction: Status post lap and adhesion lysis 07/01. She had NG in plac e with resolution of symptoms, was having bowel movements, and tolerating p.o. at time of discharge. 2. Prediabetes. Resume metformin. 3. Hyperlipidemia, statin. 4. Hypothyroidism, on levothyroxine. 5. Hypertension, not on medications outpatient. 6. Acute abdominal pain. Percocet per Dr. Cobos. PHYSICAL EXAM: VITAL SIGNS: Date of discharge, temperature 36.7, blood pressure 159/77, heart rate 67, respiration 18; 96% on room air. GENERAL: Smiling, sitting up in bed. No acute distress. HEEN T: PERRLA. EOMI. Oropharynx clear. CV: Regular rate and rhythm. No murmurs, gallops, rubs. DEIDRA GS: Clear. ABDOMEN: Mildly distended, but soft. Positive bowel sounds. No tenderness. : No F oley. MUSCULOSKELETAL: 5/5 upper and lower extremity strength. NEURO: 2 through 12 intact. PSYCH: Alert and oriented x3. /[id number]/MODL
--- NOTE | 2017-07-11 17:43 | GOP ---
[f rep st] OPERATIVE REPORT DATE OF OPERATION: 07/01/2017 SURGEON: Rolando Cobos MD PERINATOLOGY PHYSICIAN: There was no embroidery assistant. PREOPERATIVE DIAGNOSIS: Recurrent small bowel obstruction. POSTOPERATIVE DIAGNOSIS: Recurrent small bowel obstruction. PROCEDURE PERFORMED: Laparotomy with adhesiolysis. FINDINGS: Patient was found to have extensive adhesions from the ligament of Treitz all way to the i leocecal valve. There was no single site of obstruction but multiple kinks in the small bowel. ESTIMATED BLOOD LOSS: Less than 300 cc. DESCRIPTION OF PROCEDURE: The patient was taken to the operating room, where she received satisfacto ry general endotracheal anesthesia. She was prepped and draped in usual sterile fashion. A midline abdominal incision was made and carried through the old scar. The abdomen was very carefully entered , avoiding any enterotomies. The abdomen was carefully freed up from extensive adhesions. At the to p of the incision at the transverse colon, there was a small serosal injury which was closed with 3-0 Vicryl interrupted sutures with no true enterotomy. The small bowel was then carefully mobilized an d adhesions lysed from the ligament of Treitz all the way down to the cecum. This was quite tedious and extensive, but was eventually accomplished after an hour and a half of dissection. All kinks and twists were freed up and relieved. Hemostasis was assured. The wound was copiously irrigated. The re was no compromised bowel or any mass in the bowel needing resection. The abdomen was then closed with a running #1 PDS suture reinforced periodically with #1 Vicryl interrupted sutures. Some Sepraf ilm was placed under the midline incision and over the omentum, and the wound was eventually closed. Subcu was closed with a running 2-0 Vicryl and the skin with skin sj. She tolerated the proced ure well. COMPLICATIONS: There were no complications. DISPOSITION: She was taken to the recovery room in good condition. /[id number]/MODL
== END 2017-07-04 15:40 | disposition home or self-care (01) | DRG 337 ==
LOC: INTOOBSV 23:14 → F3E 06-30 12:03 → OBSVTOIN 06-30 15:51
PROVIDERS: ADMIT Surgery; ATTEND Surgery
PROC: 0DN84ZZ Release Small Intestine, Percutaneous Endoscopic Approach (ICD-10-PCS; principal; 2017-07-01 14:00)
DX: K56.600 Partial intestinal obstruction, unspecified as to cause (principal); E11.9 Type 2 diabetes mellitus without complications; I10 Essential (primary) hypertension; E03.9 Hypothyroidism, unspecified; Z87.891 Personal history of nicotine dependence; E78.00 Pure hypercholesterolemia, unspecified
CPT/HCPCS: 82947-QW; 96374; 97161-GP; 97165-GO; C1765; G0378; G8978-GP-CI; G8979-GP-CI; G8980-GP-CI; G8987-GO-CI; G8988-GO-CI; J0694; J1100; J1170; J1650; J1815; J1885; J2250; J2405; J2550; J2704; J3010; P9041; Q9967

== ENCOUNTER 2017-07-07 17:22 | Inpatient (IN) | payer OTHER ==
--- NOTE | 2017-07-07 17:31 | EDPHY ---
H & P Time Seen by Provider: 07/07/17 17:30 HPI/ROS: CHIEF COMPLAINT: Bloating abdominal pain and vomiting HISTORY OF PRESENT ILLNESS: Patient was discharged on Wednesday after a bowel obstruction surgery by Dr. Cobos. Has been eating and drinking but having gradually increasing abdominal bloating and pain culminating today and vomiting in the emergency department. Symptoms severe. Not helped by 2 enemas, had 2 small bowel movements. Not associated with fever or chills. Symptoms severe currently. Worse with trying to eat or drink anything. REVIEW OF SYSTEMS: Eye: no change in vision ENT: no sore throat Cardiac: no chest pain or syncope Pulmonary: no cough or SOB Abdomen: HPI Musculoskeletal: no back pain Skin: no rash Neuro: no headache Constitutional: no fever : no urinary symptoms A comprehensive 10 point review of systems is otherwise negative aside from elements mentioned in the history of present illness. PAST MEDICAL HISTORY: Discharge summary dated 07/04/2017 personally reviewed includes recurrent small-bowel obstruction with laparoscopic lysis of adhesions , pre diabetes, hyperlipidemia, hypothyroid, hypertension. Appendectomy, cholecystectomy, 10 bowel obstructions. Social history: Primary surgeon is Dr. Rolando Cobos. Here with daughter. General Appearance: Alert and conversant, cooperative. Eyes: No scleral icterus. ENT, Mouth: Normal mucous membranes. Respiratory: Normal respiratory effort, breath sounds equal, lungs are clear to auscultation. Cardiovascular: Regular rate and rhythm. Gastrointestinal: Abdominal tenderness which is diffuse, with guarding. Appears mildly bloated. Neurological: Alert, face symmetric, ambulatory. Skin: Warm and dry, no rashes. Musculoskeletal: No peripheral edema. Psychiatric: Not agitated. Emergency Department course/MDM: Dilaudid 0.5 mg IV and Zofran 4 mg IV, normal saline IV 1 L for nausea and vomiting, i-STAT followed by CT scanning. Discussed with Dr. Cobos at 5:35 p.m. 1920: Per Dr. Cantu 11.6 x 8.2 cm loculated fluid collection in the pelvis, on CT. 1923: Discussed with Ad for José Manuel Cobos. Discussed with patient and daughter, plan for admission and surgical consultation by Dr. Duong. 2045: Dr. Cobos here. IV Zosyn after discussion with Dr. Duong, suspicion for abscess given elevated white blood cell count. Smoking Status: Former smoker Constitutional: Initial Vital Signs Temperature (C) 36.8 C 03/14/18 17:28 Heart Rate 80 07/07/17 17:28 Respiratory Rate 18 07/07/17 17:28 Blood Pressure 104/57 L 07/07/17 17:28 O2 Sat (%) 95 07/07/17 17:28 O2 Delivery Mode Nasal Cannula O2 (L/minute) 2 Allergies/Adverse Reactions: No Known Allergies Allergy (Verified 07/07/17 17:27) Home Medications: Medication Instructions Recorded Levothyroxine [Synthroid 50 mcg 50 mcg PO SUSA 12/04/11 (*)] [place]-3 Fatty Acids [Fish Oil 1000 1,000 mg PO DAILY 01/25/14 mg (*)] Rosuvastatin Calcium [Crestor 20mg 20 mg PO DAILY 01/25/14 (*)] Cyanocobalamin [Vitamin B12 (*)] 1,000 mcg PO DAILY 12/16/15 Multivitamins [Multivitamin (*)] 1 each PO DAILY 12/16/15 metFORMIN HCL [Glucophage 500 mg 500 mg PO BIDMEAL 12/17/15 (*)] Levothyroxine [Synthroid 75 mcg 75 mcg PO MOTUWETHFR 12/19/15 (*)] oxyCODONE HCL/ACETAMINOPHEN 1 each PO Q4H PRN 07/07/17 [Percocet 5-325 mg Tablet] Medical Decision Making - Diagnostics Imaging Results: Imaging Impressions Abdomen CT 07/07/17 18:09 Impression: 1. Complex loculated collection within the cul-de-sac in the lower pelvis with associated gas bubbles. This could just represent postoperative blood collection in the lower pelvis with loculations. However, abscess is also a consideration. An attempt can be made at CT guided drainage possibly with assistance by ultrasound, however, the utility of drainage catheter placement is questionable since this collection appears to be loculated extensively with gas bubbles in multiple loculations. Surgical consultation may also be considered. 2. Mildly prominent loops of proximal to mid small bowel as well as mild gastric distention probably related to ileus as there is no specific point of obstruction identified. 3. Stable mild biliary ductal dilatation within the central hepatic ducts and proximal common bile duct. Findings discussed with Otoniel Alonzo M.D. at 19:20 hour, 07/07/2017. Imaging: Discussed imaging studies w/ hoe worker Radiologist Differential Diagnosis: Differential considered including but not limited to bowel obstruction, postoperative perforation, abscess, constipation. - Data Points Laboratory Results: Laboratory Results 07/07/17 17:55 07/07/17 17:55 07/07/17 07/07/17 07/07/17 18:38 18:01 17:55 WBC RBC Hgb POC Hgb 12.2 gm/dL L gm/dL (12.6-16.3) Hct POC Hct 36 % L % (38-47) MCV MCH MCHC RDW Plt Count MPV Neut % (Auto) Lymph % (Auto) [place] % (Auto) Eos % (Auto) Baso % (Auto) Nucleat RBC Rel Count Absolute Neuts (auto) Absolute Lymphs (auto) Absolute Monos (auto) Absolute Eos (auto) Absolute Basos (auto) Absolute Nucleated RBC Immature Gran % Seg Neutrophils % Band Neutrophils % Lymphocytes % Monocytes % Immature Gran # Absolute Seg Neuts Absolute Band Neuts Absolute Lymphocytes Absolute Monocytes Nucleated RBCs Platelet Estimate Polychromasia Smear Review By G Lactic Acid 1.6 mmol/L mmol/L (0.7-2.1) POC Sodium 135 mEq/L mEq/L (135-145) Sodium 135 mEq/L mEq/L (135-145) POC Potassium 3.5 mEq/L mEq/L (3.3-5.0) Potassium 3.8 mEq/L mEq/L (3.5-5.2) POC Chloride 97 mEq/L mEq/L (97-110) Chloride 98 mEq/L mEq/L (97-110) Carbon Dioxide 25 mEq/l mEq/l (22-31) Anion Gap 12 mEq/L mEq/L (8-16) POC BUN 9 mg/dL mg/dL (7-23) BUN 11 mg/dL mg/dL (7-23) Creatinine 0.6 mg/dL mg/dL (0.6-1.0) POC Creatinine 0.8 mg/dL mg/dL (0.6-1.0) Estimated GFR > 60 Glucose 157 mg/dL H mg/dL (70-100) POC Glucose 182 mg/dL H mg/dL (70-100) Calcium 10.2 mg/dL mg/dL (8.5-10.4) 07/07/17 17:55 WBC 31.56 10^3/uL H 10^3/uL (3.80-9.50) RBC 4.04 10^6/uL L 10^6/uL (4.18-5.33) Hgb 11.8 g/dL L g/dL (12.6-16.3) POC Hgb Hct 35.3 % L % (38.0-47.0) POC Hct MCV 87.4 fL fL (81.5-99.8) MCH 29.2 pg pg (27.9-34.1) MCHC 33.4 g/dL g/dL (32.4-36.7) RDW 13.3 % % (11.5-15.2) Plt Count 224 10^3/uL 10^3/uL (150-400) MPV 10.4 fL fL (8.7-11.7) Neut % (Auto) Not Reported Lymph % (Auto) Not Reported [place] % (Auto) Not Reported Eos % (Auto) Not Reported Baso % (Auto) Not Reported Nucleat RBC Rel Count 0.0 % % (0.0-0.2) Absolute Neuts (auto) Not Reported Absolute Lymphs (auto) Not Reported Absolute Monos (auto) Not Reported Absolute Eos (auto) Not Reported Absolute Basos (auto) Not Reported Absolute Nucleated RBC 0.00 10^3/uL 10^3/uL (0-0.01) Immature Gran % Not Reported Seg Neutrophils % 66 % % Band Neutrophils % 30 % % Lymphocytes % 3 % % Monocytes % 3 % % Immature Gran # Not Reported Absolute Seg Neuts 20.83 10^/uL H 10^/uL (1.70-6.50) Absolute Band Neuts 9.47 10^3/uL H 10^3/uL (0.00-0.70) Absolute Lymphocytes 0.95 10^3/uL L 10^3/uL (1.00-3.00) Absolute Monocytes 0.95 10^3/uL H 10^3/uL (0.30-0.80) Nucleated RBCs 2 /100 WBC H /100 WBC (0-0) Platelet Estimate ADEQUATE (ADEQ) Polychromasia 1+ H Smear Review By Pending VBG Lactic Acid POC Sodium Sodium POC Potassium Potassium POC Chloride Chloride Carbon Dioxide Anion Gap POC BUN BUN Creatinine POC Creatinine Estimated GFR Glucose POC Glucose Calcium Medications Given: Discontinued Medications Hydromorphone HCl (Dilaudid) 0.5 mg IVP EDNOW ONE Stop: 07/07/17 17:41 Last Admin: 07/07/17 18:02 Dose: 0.5 mg Sodium Chloride (Ns) 1,000 mls @ 0 mls/hr IV EDNOW ONE; Wide Open PRN Reason: Protocol Stop: 07/07/17 17:41 Last Admin: 07/07/17 18:01 Dose: 1,000 mls Piperacillin/Tazobactam/Dextrose (Zosyn 3.375 Gm (Premix)) 50 mls @ 100 mls/hr IV EDNOW ONE PRN Reason: Protocol Stop: 07/07/17 20:39 Last Admin: 07/07/17 20:24 Dose: 50 mls Ondansetron HCl (Zofran) 4 mg IVP EDNOW ONE Stop: 07/07/17 17:41 Last Admin: 07/07/17 18:02 Dose: 4 mg Point of Care Test Results: 07/07/17 18:01 POC Sodium 135 POC Potassium 3.5 POC Chloride 97 POC BUN 9 POC Creatinine 0.8 POC Glucose 182 H Departure - Departure Disposition: [facility] Inpatient Acute Clinical Impression: Pelvic fluid collection Condition: Good
[2017-07-07] MEDS ORDERED: ONDANSETRON 4 MG/2 ML VIAL IVP ONE (17:40)
[2017-07-07] MEDS ORDERED: HYDROmorphONE/DILAUDID 2 MG/ML INJ IVP ONE (17:40)
[2017-07-07] MEDS ORDERED: NS 1,000 ML IV ONE (17:40)
[2017-07-07 18:15] LABS: PLATELET COUNT 224 10^3/uL (150-400)
[2017-07-07] MEDS ORDERED: IOPAMIDOL (ISOVUE-300) 100 ML BTL ONE (18:18)
[2017-07-07] MEDS ORDERED: ONDANSETRON 4 MG/2 ML VIAL IVP PRN (19:58)
[2017-07-07] MEDS ORDERED: PROMETHAZINE HCL 25 MG/ML INJ IVP PRN (19:59)
[2017-07-07] MEDS ORDERED: HYDROmorphONE/DILAUDID 2 MG/ML INJ IVP PRN (20:09)
[2017-07-07] MEDS ORDERED: PIPERACILLIN/TAZO 3.375 GM/DEX 50 ML IV ONE (20:10)
--- NOTE | 2017-07-07 20:23 | GHP ---
[f rep st] HISTORY AND PHYSICAL DATE OF ADMISSION: 07/07/2017 CHIEF COMPLAINT: Abdominal pain. HISTORY OF PRESENT ILLNESS: The patient is a 77-year-old woman who underwent laparotomy and lysis of adhesions on July 01, 2017. She was discharged on Wednesday. Since Wednesday she has had increasing abdo tasha pain and bloating and she ultimately had emesis. She has had 2 enemas and had small gas output . Her pain was worse with any p.o. intake. She denies any fevers, but has experienced chills. PAST MEDICAL HISTORY: Includes diabetes, hyperlipidemia, hypothyroid, hypertension. PAST SURGICAL HISTORY: Includes appendectomy, cholecystectomy, multiple abdominal surgeries for lysi s of adhesions. FAMILY HISTORY: Noncontributory. SOCIAL HISTORY: She does not use tobacco products. Her daughter is very attentive. REVIEW OF SYSTEMS: 10-point review of systems negative, except per HPI. PHYSICAL EXAM: VITAL SIGNS: 36.8, 80, 104/57, 18, 95%. GENERAL: Pleasant, well-nourished, well-gr oomed woman, lying in bed. Daughter at bedside. HEENT: Normocephalic. No gross hearing deficits. Mucous membranes moist. Pupils equal and round. No scleral icterus. LUNGS: Clear to auscultation bilaterally. No increased work of breathing. CARDIAC: Regular rate. No peripheral edema. ABDOME N: She is markedly distended. She does have bowel sounds. She is minimally tender. Certainly ther e are no peritoneal signs. The staple line is clean, dry and intact. She has some resolving ecchymo sis. NEURO: Grossly intact. PSYCH: Mood and affect normal. LABORATORY DATA: Results reviewed. I personally reviewed her laboratory work which is significant f or white count of 30,000. Her CT scan I personally reviewed which shows a loculated fluid collection in the pelvis. I do not see any free air or a bowel obstruction. IMPRESSION AND PLAN: The patient is a 77-year-old woman status post laparotomy and lysis of adhesion s for bowel obstruction. I am concerned that this fluid collection represents an abscess. She is no t toxic at the moment. Due to her multiple abdominal surgery history, I would like to review the zack e with Dr. Cobos to see if percutaneous drainage could be worthy as it is certainly less invasive; ho wever, since the fluid is loculated, this may be better dealt with a laparotomy. However, she is loli roximately 1 week out from her previous surgery and she could have a lot of adhesions, and surgery co uld also be problematic. Since she is not toxic, I will admit her to the floor, n.p.o. I will place her on Zosyn and monitor her overnight and clarify the plan in the morning. /[id number]/MODL
[2017-07-07] MEDS: ZOLPIDEM TARTRATE 5 MG TAB PO PRN (22:40)
[2017-07-07] MEDS: D5W 1/2 NS W/ 20 KCl/L 1,000 ML IV SCH (22:53)
[2017-07-08] MEDS: PIPERACILLIN/TAZO 3.375 GM/DEX 50 ML IV SCH ×4 (03:00→19:46)
[2017-07-08 03:23] LABS: PLATELET COUNT 203 10^3/uL (150-400)
[2017-07-08 03:31] LABS: INR 1.29 (0.83-1.16); PROTIME(PATIENT) 16.3 SEC (12.0-15.0)
[2017-07-08] MEDS: LEVOTHYROXINE 75 MCG TAB PO SCH (06:33)
[2017-07-08] MEDS: ACETAMINOPHEN 325 MG TAB PO PRN (07:41)
[2017-07-08] MEDS: ROSUVASTATIN CALCIUM 20 MG TAB PO SCH (07:42)
[2017-07-08] MEDS: D5W 1/2 NS W/ 20 KCl/L 1,000 ML IV SCH (09:15)
--- NOTE | 2017-07-08 09:20 | ASMTCASEMG ---
Living Arrangements What is your living Answers: Alone arrangement? Who do you live with? Type Of Residence What kind of residence do Answers: House you live in? Discharge Plan Comments Coordination Status Comments Notes: CM spoke w/ BERNABE Sanabria regarding d/c POC. Pt is a 77 y/o female admitted for abdominal pain. Pt was recently here at [facility] from 06/30/17 to 07/04/17. Pt will have an abscess drained in her abdominal today by Dr. Duong. Pt will most likely d/c without any needs when medically stable. CM available for d/c needs, should they arise after surgery. Pt has been walking independently in her bedroom. Plan: Independent Date Signed: 07/08/2017 09:18 AM Electronically Signed By:FREEDOM Tate
--- NOTE | 2017-07-08 09:52 | PDMN ---
Medical Necessity Medical necessity: Pt meets IP criteria per MD; est los >2 mn for eval/tx of abdominal pain, bloating & N/V r/t possible abscess; admit for further workup/ monitoring, possible surgical intervention, IV abx, IVFs, IV pain meds/ antiemetics; hx recent hospitalization s/p laparotomy & lysis of adhesions, recurrent SBO, diabetes, & htn; per H&P & order 07/07/17
[2017-07-08] MEDS ORDERED: FLUMAZENIL 0.5 MG/5 ML MDV IVP PRN (12:54)
[2017-07-08] MEDS ORDERED: MIDAZOLAM 2 MG/2 ML VIAL IVP PRN (12:54)
[2017-07-08] MEDS ORDERED: NALOXONE HCL 0.4 MG/ML INJ IVP PRN (12:54)
[2017-07-08] MEDS ORDERED: NALOXONE HCL 0.4 MG/ML INJ ONE (12:57)
[2017-07-08] MEDS ORDERED: FLUMAZENIL 0.5 MG/5 ML MDV IVP ONE (12:58)
[2017-07-08] MEDS ORDERED: MIDAZOLAM 2 MG/2 ML VIAL ONE (12:58)
[2017-07-08] MEDS ORDERED: fentaNYL 100 MCG/2 ML INJ ONE (12:58)
[2017-07-08] MEDS ORDERED: NS 1,000 ML IV SCH (13:00)
--- NOTE | 2017-07-08 13:45 | PDGENHP ---
History & Physical Chief Complaint: pelvic abscess History of Present Illness: recent SBO with post operative pelvic abscess Relevant Physical Exam: minimally distended abdomen, AOx3 Cardiorespiratory Assessment: RRR, nl WOB
--- NOTE | 2017-07-08 13:45 | PDPROPOC ---
Sedation Plan of Care Sedation Plan of Care: vital signs stable, mental status noted ASA Classification: ASA 3 Planned drugs: fentanyl, midazolam Mallampati Score: Class 2 Mallampati Reference Image: Patient passed 3-3-2 rule?: Yes
[2017-07-08] MEDS: fentaNYL 100 MCG/2 ML INJ IVP PRN ×2 (14:23→14:59)
--- NOTE | 2017-07-08 14:28 | PDRADPN ---
Radiology Procedure Note Date of Procedure: 07/08/17 Radiologist: Zander Choi Anesthesia: IV Sedation Pre-op Diagnosis: pelvic absess Post-op Diagnosis: same Indication: infection control Procedure: CT guided drain placement Finding(s): good drain position Inf/Abcess present in the surg proc area at time of surgery?: Yes Depth: Organ Space EBL: Minimal Complications: none Specimen(s): yes
[2017-07-08] MEDS ORDERED: HYDROmorphONE/DILAUDID 2 MG/ML INJ ONE (15:17)
[2017-07-08] MEDS: ZOLPIDEM TARTRATE 5 MG TAB PO PRN (23:00)
[2017-07-09] MEDS: PIPERACILLIN/TAZO 3.375 GM/DEX 50 ML IV SCH ×4 (01:34→20:06)
[2017-07-09] MEDS: LEVOTHYROXINE 75 MCG TAB PO SCH (05:02)
[2017-07-09] MEDS: ROSUVASTATIN CALCIUM 20 MG TAB PO SCH (08:31)
--- NOTE | 2017-07-09 14:58 | SOAPPROG ---
SOAP Progress Note Assessment/Plan: Assessment: 77 y/o female s/p extensive adhesiolysis for SBO last hospital stay Now s/p CT guided drain placement 07/08 for pelvic abscess S: C/o moderate tenderness at drain site. Denies incisional pain. Eating/ drinking. Voiding and stooling as normal. O: Alert. 37.5C temp No WOB RRR Abdomen: softly distended, nontender, normoactive bowel sounds, incision cdi NEPTALI drain with serous fluid Plan: Will continue abx. Continue to monitor 07/09/17 14:53 Objective: Vital Signs Temp Pulse Resp BP Pulse Ox 37.5 C 85 16 120/63 91 L 07/09/17 08:00 07/09/17 08:00 07/09/17 08:00 07/09/17 08:00 07/09/17 08:00 Microbiology 07/08/17 14:05 Gram Stain - Final Pelvis - Aspirate Laboratory Results 07/08/17 03:01 07/08/17 03:01 07/08/17 07/09/17 07/10/17 05:59 05:59 05:59 Intake Total 1000 2689 Output Total 700 400 Balance 300 2289 PT 16.3 SEC (12.0-15.0) H 07/08/17 03:01 INR 1.29 (0.83-1.16) H 07/08/17 03:01 ICD10 Worksheet Patient Problems: Problems Problem Status Onset Pelvic fluid collection Acute Abdominal pain Active Essential hypertension Active Hyperglycemia Active Hypothyroidism Active Bowel obstruction Acute
[2017-07-09 18:38] LABS: PLATELET COUNT 190 10^3/uL (150-400)
[2017-07-09] MEDS: ZOLPIDEM TARTRATE 5 MG TAB PO PRN (22:22)
[2017-07-10] MEDS: ZOLPIDEM TARTRATE 5 MG TAB PO PRN ×2 (02:17→22:49)
[2017-07-10] MEDS: PIPERACILLIN/TAZO 3.375 GM/DEX 50 ML IV SCH ×4 (02:17→19:54)
[2017-07-10] MEDS: LEVOTHYROXINE 50 MCG TAB PO SCH (05:20)
[2017-07-10 05:47] LABS: PLATELET COUNT 190 10^3/uL (150-400)
[2017-07-10] MEDS: ROSUVASTATIN CALCIUM 20 MG TAB PO SCH (08:50)
--- NOTE | 2017-07-10 15:15 | SOAPPROG ---
SOAP Progress Note Assessment/Plan: Assessment: 77 yo s/p TORRES readmitted with high WBC and loculated fluid collection in pelvis Drain placed by IR Improved on ABX D/C wed or wednesday S: Feeling improved. Tolerating small amounts of food O: Midline incision cdi Softer NEPTALI with serous fluid CTAB RRR Plan: 07/10/17 15:13 Objective: Vital Signs Temp Pulse Resp BP Pulse Ox 37.8 C 72 16 130/69 H 94 07/10/17 14:46 07/10/17 14:46 07/10/17 14:46 07/10/17 14:46 07/10/17 14:46 Microbiology 07/08/17 14:05 Gram Stain - Final Pelvis - Aspirate Laboratory Results 07/10/17 05:14 07/08/17 03:01 07/09/17 07/10/17 07/11/17 05:59 05:59 05:59 Intake Total 2689 Output Total 400 50 50 Balance 2289 -50 -50 PT 16.3 SEC (12.0-15.0) H 07/08/17 03:01 INR 1.29 (0.83-1.16) H 07/08/17 03:01 ICD10 Worksheet Patient Problems: Problems Problem Status Onset Pelvic fluid collection Acute Abdominal pain Active Essential hypertension Active Hyperglycemia Active Hypothyroidism Active Bowel obstruction Acute
[2017-07-10] MEDS: ACETAMINOPHEN 325 MG TAB PO PRN ×2 (18:47→22:49)
[2017-07-11] MEDS: PIPERACILLIN/TAZO 3.375 GM/DEX 50 ML IV SCH ×4 (01:46→19:50)
[2017-07-11] MEDS: ZOLPIDEM TARTRATE 5 MG TAB PO PRN ×2 (02:51→21:58)
[2017-07-11] MEDS: ACETAMINOPHEN 325 MG TAB PO PRN ×2 (10:55→19:54)
[2017-07-11] MEDS: ROSUVASTATIN CALCIUM 20 MG TAB PO SCH (10:56)
[2017-07-11] MEDS: LEVOTHYROXINE 50 MCG TAB PO SCH (10:59)
--- NOTE | 2017-07-11 13:01 | SOAPPROG ---
SOAP Progress Note Assessment/Plan: Assessment: 77 yo s/p TORRES readmitted with high WBC and loculated fluid collection in pelvis Drain placed by IR Improved on ABX José Manuel Fan - asked Dr. Putnam to see to help narrow ABX for discharge Keep drain - drain study tomorrow? May need repeat CT H/H dropping. Will monitor S: Feeling improved. Tolerating diet O: Midline incision cdi Softer, less distended today NEPTALI with scant serous fluid CTAB RRR Plan: 07/10/17 15:13 07/11/17 12:57 Objective: Vital Signs Temp Pulse Resp BP Pulse Ox 37.1 C 65 18 126/75 H 97 07/11/17 07:59 07/11/17 07:59 07/11/17 07:59 07/11/17 07:59 07/11/17 07:59 Microbiology 07/08/17 14:05 Gram Stain - Final Pelvis - Aspirate Laboratory Results 07/10/17 05:14 07/08/17 03:01 07/10/17 07/11/17 07/12/17 05:59 05:59 05:59 Intake Total 400 Output Total 50 60 Balance -50 340 PT 16.3 SEC (12.0-15.0) H 07/08/17 03:01 INR 1.29 (0.83-1.16) H 07/08/17 03:01 ICD10 Worksheet Patient Problems: Problems Problem Status Onset Pelvic fluid collection Acute Abdominal pain Active Essential hypertension Active Hyperglycemia Active Hypothyroidism Active Bowel obstruction Acute
--- NOTE | 2017-07-11 16:40 | ASMTCMCOM ---
CM Note CM Note Notes: Anticipate dc home independently when medically stable. ID consult placed; CM to continue to follow in case pt needs IV abx at time of dc. Date Signed: 07/11/2017 04:39 PM Electronically Signed By:Sharonda Fung RN
[2017-07-11 16:41] VITALS: O2SAT 95
--- NOTE | 2017-07-11 17:18 | GCON ---
[f rep st] CONSULTATION INFECTIOUS DISEASE CONSULTATION DATE OF CONSULTATION: 07/11/2017 REASON FOR CONSULTATION: Pelvic abscess. HISTORY OF PRESENT ILLNESS: The patient is a 77-year-old female whom I am asked to see in consultati on for a pelvic abscess in the setting of recent small-bowel obstruction. The patient had been admit [facility] earlier this month for small-bowel obstruction and subsequently underwent laparotomy with lysis o f diffuse adhesions on 07/01/2017. The patient was discharged on 07/04/2017, and after discharge dev eloped persistent abdominal bloating with associated pain and vomiting. She describes having subject isabel fever with shaking chills. CT scan of the abdomen and pelvis was performed, which showed an 11 x 6 x 8.2 x 7.2 cm complex septated/ loculated fluid collection with gas bubbles in the lower pelvis. She subsequently underwent CT-guided drainage of the fluid collection, which yielded 35 mL of cloudy serosanguineous fluid. Gram stain of the specimen showed 4+ white blood cells, 4+ gram-positive miroslava s, and 3+ gram-negative rods with growth of Clostridium perfringens. The patient has been treated wi piperacillin/tazobactam. At time of presentation, she also had a prominent leukocytosis with whit e count of 31.5, which has now decreased to 12.9. She feels significantly improved with decreased ab dominal pain. She notes drain output has decreased significantly. She did have temperature during h er hospital stay on 07/08/2017, which has now resolved. Given the growth of clostridium and clinical progress with potential discharge from the hospital soon, I am now consulted for Infectious Disease evaluation to assist with her ongoing antibiotic management. PAST MEDICAL HISTORY: Prediabetes, hyperlipidemia, hypothyroidism, hypertension. PAST SURGICAL HISTORY: Appendectomy, cholecystectomy, multiple abdominal surgeries for lysis of adhe sions and bowel obstruction. CURRENT MEDICATIONS: 1. Zosyn 3.375 g IV q.6 hours. 2. Synthroid 75 mcg p.o. 5x per week and 50 mcg p.o. twice per week. 3. Dilaudid as needed. 4. Crestor 20 mg p.o. daily. ALLERGIES: No known drug allergies. SOCIAL HISTORY: Patient does not smoke. She drinks wine occasionally. No drug use. FAMILY HISTORY: Patient notes is unremarkable other than remote cancer, but she is not able to furth er qualify. REVIEW OF SYSTEMS: Outside that noted in the HPI, remainder of 10 system review is unremarkable. PHYSICAL EXAMINATION: VITAL SIGNS: Temperature 37.1, heart rate 65, respiratory rate 18, blood pres sure 142/76, oxygen saturation 95% on room air. GENERAL: The patient is well-nourished, well-develo ped in no acute distress. She appears nontoxic. HEENT: There is no scleral icterus, conjunctival i njection, or conjunctival petechiae. The oropharynx is clear without lesions. Mucous membranes are moist. Dentition is in good repair. There is no nasal discharge. There is no tenderness over the f rontal maxillary or mastoid area. NECK: Supple without palpable lymphadenopathy or thyromegaly. CH EST: Clear to auscultation bilaterally without adventitious sounds. Respiratory effort is normal. CARDIOVASCULAR: Regular rate and rhythm without murmurs, gallops, or rubs. ABDOMEN: Soft, mildly t alexia, no significant distention, midline incision is healing well; NEPTALI drain with thin yellow fluid i n small amount. Bowel sounds are present. No palpable organomegaly. MUSCULOSKELETAL: No cyanosis, clubbing, or edema. SKIN: No rashes present. No stigmata of endocarditis. NEUROLOGIC: Patient i s alert and interacts appropriately with examiner. Cranial nerves 2 through 12 are grossly intact. Sensation is grossly intact. LABORATORY DATA: White blood cell count 12.9, hematocrit 25.9, platelets 190, neutrophils 84%. Seru m creatinine is 0.6. Blood cultures x2 sets no growth. Gram stain of pelvic fluid collection as out lined previously, now with growth of 1+ Clostridium perfringens. IMPRESSION: Pelvic abscess status post small bowel obstruction with laparotomy and lysis of adhesion s: Gram stain and culture are consistent with enteric arnulfo. Reviewed with Dr. Duong and no intraop erative enterotomies noted. It is possible patient had translocation at the time of her small bowel obstruction with subsequent evolution to pelvic abscess formation. She does have diverticulosis in t he region of her abscess, but no evidence of diverticulitis. We will continue with Zosyn pending add itional culture data. If cultures do not show growth of further organisms other than clostridium, we will be able to transition to oral levofloxacin 750 mg p.o. daily and metronidazole 500 mg p.o. q.8 hours to complete therapy. Plans are in place for possible drain study and repeat CT scan to assess adequacy of drainage of pelvic abscess tomorrow. RECOMMENDATIONS: 1. Continue Zosyn pending additional culture data. 2. Plan levofloxacin and metronidazole orally if cultures do not show additional gram-negative speci es unless dictated otherwise by cultures. 3. Agree with plans for drain study and repeat CT to assess for adequacy of drainage. Thank you for this consultation. We will continue to follow the patient with you. /[id number]/MODL
[2017-07-11 23:18] VITALS: RESP 16
[2017-07-12] MEDS: PIPERACILLIN/TAZO 3.375 GM/DEX 50 ML IV SCH ×2 (02:37→07:48)
[2017-07-12] MEDS: ZOLPIDEM TARTRATE 5 MG TAB PO PRN (03:12)
[2017-07-12 04:55] LABS: PLATELET COUNT 278 10^3/uL (150-400)
[2017-07-12] MEDS: LEVOTHYROXINE 75 MCG TAB PO SCH (07:48)
[2017-07-12] MEDS: ROSUVASTATIN CALCIUM 20 MG TAB PO SCH (07:49)
[2017-07-12 08:37] VITALS: BP 144/70; PULSE 64; TEMP 98.3
--- NOTE | 2017-07-12 10:45 | PCMIDPN ---
Assessment/Plan: Assessment: Abdominal collection growing Clostridium perfringens. Currently on IV Zosyn. Will switch over to oral Levaquin and Flagyl. Patient to be getting a drain study today to ensure adequate drainage. Could possibly go home on oral antibiotics for 2 weeks from drainage. Plan: 1. Discontinue Zosyn. 2. Start Levaquin 750 p.o. Daily and Flagyl 500 p.o. Three times daily today. 3. Agree with drain study. 4. Total duration of antibiotic 2 weeks from drain placement. 07/12/17 10:42 Subjective: Patient is resting in her hospital room. She has no particular complaints today. Still draining from 1/2 NEPTALI drains. Denies any fevers or chills. Objective: Zosyn # 5 Vital Signs Temp Pulse Resp BP Pulse Ox 36.8 C 64 16 144/70 H 95 07/12/17 08:00 07/12/17 08:00 07/12/17 08:00 07/12/17 08:00 07/11/17 23:18 Microbiology 07/08/17 14:05 Gram Stain - Final Pelvis - Aspirate Laboratory Results 07/12/17 04:40 07/12/17 04:40 07/11/17 07/12/17 07/13/17 05:59 05:59 05:59 Intake Total 400 500 Output Total 60 0 Balance 340 500 - Physical Exam General Appearance: WD/WN, alert, no apparent distress, non-toxic Cardiac/Chest: regular rate, rhythm, No tachycardia Skin: normal color, warm/dry, No rash Neuro/Psych: alert, normal mood/affect, oriented x 3 ICD10 Worksheet Patient Problems: Problems Problem Status Onset Pelvic fluid collection Acute Abdominal pain Active Essential hypertension Active Hyperglycemia Active Hypothyroidism Active Bowel obstruction Acute
--- NOTE | 2017-07-12 10:53 | SOAPPROG ---
SOAP Progress Note Assessment/Plan: Assessment: 77 y/o female s/p extensive adhesiolysis for SBO last hospital stay Now s/p CT guided drain placement 07/08 for pelvic seroma S: Doing better, would like to go home. Denies incisional pain. Eating/ drinking. Voiding and stooling as normal. O: Alert. Afebrile No WOB RRR Abdomen: softly distended, nontender, normoactive bowel sounds, incision cdi NEPTALI drain with scant serous fluid Plan: Drain study today to evaluate residual seroma cavity. Pending study, will discharge today. 07/12/17 10:51 Objective: Vital Signs Temp Pulse Resp BP Pulse Ox 36.8 C 64 16 144/70 H 95 07/12/17 08:00 07/12/17 08:00 07/12/17 08:00 07/12/17 08:00 07/11/17 23:18 Microbiology 07/08/17 14:05 Gram Stain - Final Pelvis - Aspirate Laboratory Results 07/12/17 04:40 07/12/17 04:40 07/11/17 07/12/17 07/13/17 05:59 05:59 05:59 Intake Total 400 500 Output Total 60 0 Balance 340 500 PT 16.3 SEC (12.0-15.0) H 07/08/17 03:01 INR 1.29 (0.83-1.16) H 07/08/17 03:01 ICD10 Worksheet Patient Problems: Problems Problem Status Onset Pelvic fluid collection Acute Abdominal pain Active Essential hypertension Active Hyperglycemia Active Hypothyroidism Active Bowel obstruction Acute
[2017-07-12] MEDS ORDERED: IOPAMIDOL (ISOVUE 370) 100 ML BTL IV ONE (11:34)
[2017-07-12] MEDS: ACETAMINOPHEN 325 MG TAB PO PRN (12:38)
--- NOTE | 2017-07-12 13:13 | SOAPPROG ---
SOAP Progress Note Assessment/Plan: Assessment: ABD SOFT, NONTENDER WITH GOOD BS/ AFEBRILE/ MINIMAL DRAINAGE Plan:HOME TODAY ON ORAL ABX IF DRAIN STUDY OK 07/12/17 13:12 Objective: Vital Signs Temp Pulse Resp BP Pulse Ox 36.8 C 64 16 144/70 H 95 07/12/17 08:00 07/12/17 08:00 07/12/17 08:00 07/12/17 08:00 07/11/17 23:18 Microbiology 07/08/17 14:05 Gram Stain - Final Pelvis - Aspirate Laboratory Results 07/12/17 04:40 07/12/17 04:40 07/11/17 07/12/17 07/13/17 05:59 05:59 05:59 Intake Total 400 500 Output Total 60 0 Balance 340 500 PT 16.3 SEC (12.0-15.0) H 07/08/17 03:01 INR 1.29 (0.83-1.16) H 07/08/17 03:01 ICD10 Worksheet Patient Problems: Problems Problem Status Onset Pelvic fluid collection Acute Abdominal pain Active Essential hypertension Active Hyperglycemia Active Hypothyroidism Active Bowel obstruction Acute
[2017-07-12] MEDS ORDERED: metroNIDAZOLE 500 MG TAB PO SCH (14:00)
--- NOTE | 2017-07-12 14:46 | ASMTCMCOM ---
CM Note CM Note Notes: Dc order received. Pt discharging home independently. CM available if needs/changes. Date Signed: 07/12/2017 02:45 PM Electronically Signed By:Sharonda Fung RN
--- NOTE | 2017-07-12 14:50 | ASDISCHSUM ---
Discharge Information Plan Status:Home with No Needs Medically Cleared to Leave:07/12/2017 Discharge Date:07/12/2017 CM D/C Disposition:Home, Routine, Self-Care ADT D/C Disposition:Home, Routine, Self-Care Projected Discharge Date:07/12/2017 12:00 AM Transportation at D/C:Family Discharge Delay Reason: Follow-Up Date:07/12/2017 12:00 AM Discharge Slot: Final Diagnosis: Placement Information Patient Contact Information Contact Name:VADIM Relationship:Daughter Address:[address] City:[place] Alternate Phone: [facility]/Zip Code:[place] [address] Email: Financial Information Financial Class:Medicare Primary Plan Desc:MEDICARE INPATIENT Primary Plan Number:[id number] Secondary Plan Desc:[facility] Secondary Plan Number:[id number] Assessment Information [facility] Initial CM Assessment Living Arrangements What is your living Answers: Alone arrangement? Who do you live with? Type Of Residence What kind of residence do Answers: House you live in? Discharge Plan Comments Coordination Status Comments Notes: CM spoke w/ BERNABE Sanabria regarding d/c POC. Pt is a 77 y/o female admitted for abdominal pain. Pt was recently here at [facility] from 06/30/17 to 07/04/17. Pt will have an abscess drained in her abdominal today by Dr. Duong. Pt will most likely d/c without any needs when medically stable. CM available for d/c needs, should they arise after surgery. Pt has been walking independently in her bedroom. Plan: Independent Date Signed: 07/08/2017 09:18 AM Electronically Signed By:FREEDOM Tate [facility] Progress Note CM Note CM Note Notes: Anticipate dc home independently when medically stable. ID consult placed; CM to continue to follow in case pt needs IV abx at time of dc. Date Signed: 07/11/2017 04:39 PM Electronically Signed By:Sharonda Fung RN [facility] CM Progress Note CM Note CM Note Notes: Dc order received. Pt discharging home independently. CM available if needs/changes. Date Signed: 07/12/2017 02:45 PM Electronically Signed By:Sharonda Fung RN Intervention Information Intervention Type:*IM-Signed Date of Service:07/09/2017 03:17 PM Patient Type:Inpatient Staff Member:Nancy Santizo Hours: Discipline: Severity: Comment: Intervention Type:*IM-Signed Date of Service:07/12/2017 02:18 PM Patient Type:Inpatient Staff Member:Nancy Santizo Hours: Discipline: Severity: Comment:
== END 2017-07-12 15:10 | disposition home or self-care (01) | DRG 862 ==
LOC: F2W 21:06 → F3E 07-08 18:02
PROVIDERS: ADMIT Surgery; ATTEND Surgery
PROC: 0W9G40Z Drainage of Peritoneal Cavity with Drainage Device, Percutaneous Endoscopic Approach (ICD-10-PCS; principal; 2017-07-08 14:19)
DX: T81.4XXA Infection following a procedure, initial encounter (principal); K65.1 Peritoneal abscess; B96.7 Clostridium perfringens [C. perfringens] as the cause of diseases classified elsewhere; E11.9 Type 2 diabetes mellitus without complications; E78.5 Hyperlipidemia, unspecified; E03.9 Hypothyroidism, unspecified; I10 Essential (primary) hypertension
CPT/HCPCS: 82947-QW; 96374; J1170; J2250; J2310; J2405; J2543; J3010; Q9967

== ENCOUNTER → 2017-12-31 | Outpatient (CLI) | payer OTHER | LOC: BMCIMAGING 13:12 | PROVIDERS: ATTEND Internal Medicine | DX: H54.7 Unspecified visual loss (principal) ==

== ENCOUNTER 2018-04-11 23:08 | Inpatient (IN) | payer OTHER ==
[2018-04-11] MEDS ORDERED: ONDANSETRON 4 MG/2 ML VIAL IVP ONE (23:21)
[2018-04-11] MEDS ORDERED: NS 1,000 ML IV ONE (23:21)
[2018-04-11] MEDS ORDERED: HYDROmorphONE/DILAUDID 2 MG/ML INJ IVP ONE (23:21)
--- NOTE | 2018-04-11 23:21 | EDPHY ---
H & P Stated Complaint: MID ABD PAIN STARTED @ 6P/HX OF SBO Time Seen by Provider: 04/11/18 23:21 HPI/ROS: HPI CHIEF COMPLAINT: Abdominal pain HISTORY OF PRESENT ILLNESS: Very pleasant 77-year-old female, history of SBO, presents emergency room stating that she is very familiar with the feeling of SBO in feels like she may have another 1. No nausea vomiting. No fever. No diarrhea. 8 around 430pm This afternoon around 630 at night she started developing abdominal discomfort lower abdominal pain. Bloating. No chest pain or shortness of breath. States this feels similar to previous SBO became on slower. Past Medical History: History of small-bowel obstruction, hypertension, diabetes, thyroid disease, pelvic abscess fluid collection Past Surgical History: Multiple abdominal surgeries including cholecystectomy, appendectomy colon surgery, hysterectomy, SBO Social History: Denies drugs alcohol tobacco. Family History: Noncontributory ROS REVIEW OF SYSTEMS: 10 Systems were reviewed and negative with the exception of the elements mentioned in the history of present illness. Exam Constitutional nontoxic, triage nursing summary reviewed, vital signs reviewed , awake/alert. Eyes normal conjunctivae and sclera, EOMI, PERRLA. HENT normal inspection, atraumatic, moist mucus membranes, no epistaxis, neck supple/ no meningismus, no raccoon eyes. Respiratory clear to auscultation bilaterally, normal breath sounds, no respiratory distress, no wheezing. Cardiovascular rate normal, regular rhythm, no murmur, no edema, distal pulses normal. Gastrointestinal mild tender palpation lower abdomen multiple large scars on abdomen. Neuro peritoneal signs. Hypoactive bowel sounds Genitourinary no CVA tenderness. Musculoskeletal no midline vertebral tenderness, full range of motion, no calf swelling, no tenderness of extremities, no meningismus, good pulses, neurovascularly intact. Skin pink, warm, & dry, no rash, skin atraumatic. Neurologic awake, alert and oriented x 3, AAOx3, moves all 4 extremities equally, motor intact, sensory intact, CN II-XII intact, normal cerebellar, normal vision, normal speech. Psychiatric normal mood/affect. Heme/Lymph/Immune no lymphadenopathy. Differential diagnosis includes but is not limited to and in no particular order : Bowel obstruction, appendicitis, gallbladder disease, diverticulitis, colitis , enteritis, perforated viscus, gastritis, GERD, esophagitis, urinary tract infection, pyelonephritis, kidney stones Medical Decision Making: Plan for this patient IV establishment IV fluid bolus , IV Dilaudid for pain control IV Zofran nausea KUB, basic blood work, re- evaluate. Re-evaluation: CT scan abdomen pelvis with IV contrast called to me by , SBO present. Spoke with Dr. Cobos 12:30 a.m. Will admit for SBO. Source: Patient - Personal History Current Tetanus Diphtheria and Acellular Pertussis (TDAP): Yes Tetanus Vaccine Date: 2011 - Medical/Surgical History Hx Asthma: No Hx Chronic Respiratory Disease: No Hx Diabetes: Yes Hx Cardiac Disease: No Hx Renal Disease: No Hx Cirrhosis: No Hx Alcoholism: No Hx HIV/AIDS: No Hx Splenectomy or Spleen Trauma: No Other PMH: HIGH CHOLESTEROL, HYPOTHYROID, COLON RESECTION, HYSTERECTOMY/ OOPHERECTOMY,SBO X9, SBO SURG X1, APPY, GB, Diab borderline-on meds. - Social History Smoking Status: Former smoker Constitutional: Initial Vital Signs Temperature (C) 36.3 C 04/11/18 23:15 Heart Rate 65 04/11/18 23:15 Respiratory Rate 18 04/11/18 23:15 Blood Pressure 194/91 H 04/11/18 23:15 O2 Sat (%) 96 04/11/18 23:15 O2 Delivery Mode Room Air O2 (L/minute) 1 Allergies/Adverse Reactions: No Known Allergies Allergy (Verified 07/07/17 17:27) Home Medications: Medication Instructions Recorded Levothyroxine [Synthroid 50 mcg 50 mcg PO SUSA 12/04/11 (*)] Rosuvastatin Calcium [Crestor 20mg 20 mg PO DAILY 01/25/14 (*)] metFORMIN HCL [Glucophage 500 mg 500 mg PO BIDMEAL 12/17/15 (*)] Levothyroxine [Synthroid 75 mcg 75 mcg PO MOTUWETHFR 12/19/15 (*)] Aspirin [Aspirin 81mg (*)] 81 mg PO DAILY 04/12/18 Cholecalciferol Vit D3 [Vitamin D3 1,000 units PO DAILY 04/12/18 (*)] Losartan Potassium [Cozaar 25 mg 25 mg PO DAILY 04/12/18 (*)] [place]-3 Fatty Acids [Fish Oil 1000 1,000 mg PO DAILY 04/12/18 mg (*)] Vitamin B Complex [Vitamin B 1 each PO DAILY 04/12/18 Complex (OTC)] Medical Decision Making - Data Points Laboratory Results: Laboratory Results 04/11/18 23:27 04/11/18 23:27 Medications Given: Discontinued Medications Acetaminophen (Tylenol) 650 mg PO Q4H PRN PRN Reason: Pain, Mild Stop: 10/09/18 20:04 Last Admin: 04/12/18 20:33 Dose: 650 mg Hydromorphone HCl (Dilaudid) 0.5 mg IVP EDNOW ONE Stop: 04/11/18 23:22 Last Admin: 04/11/18 23:38 Dose: 0.5 mg Hydromorphone HCl (Dilaudid) 0.5 mg IVP EDNOW ONE Stop: 04/12/18 01:05 Last Admin: 04/12/18 01:42 Dose: 0.5 mg Hydromorphone HCl (Dilaudid) 0.2 - 0.4 mg IVP Q8HRS PRN PRN Reason: Pain,mod-sev Stop: 04/22/18 04:10 Last Admin: 04/12/18 06:24 Dose: 0.2 mg Hydromorphone HCl (Dilaudid) 0.2 - 0.4 mg IVP Q2 PRN PRN Reason: Pain,mod-sev Stop: 04/22/18 13:06 Last Admin: 04/12/18 13:30 Dose: 0.4 mg Sodium Chloride (Ns) 1,000 mls @ 0 mls/hr IV EDNOW ONE; Wide Open PRN Reason: Protocol Stop: 04/11/18 23:22 Last Admin: 04/11/18 23:38 Dose: 1,000 mls Dextrose/Sodium Chloride (D5w 1/2 Ns) 1,000 mls @ 150 mls/hr IV CONT JULIEN Stop: 10/09/18 04:29 Last Admin: 04/13/18 04:04 Dose: 1,000 mls Lorazepam (Ativan Injection) 1 mg IVP EDNOW ONE Stop: 04/12/18 00:49 Last Admin: 04/12/18 00:50 Dose: 1 mg Ondansetron HCl (Zofran) 4 mg IVP EDNOW ONE Stop: 04/11/18 23:22 Last Admin: 04/11/18 23:38 Dose: 4 mg Ondansetron HCl (Zofran) 4 mg IVP Q4HRS PRN PRN Reason: Nausea/Vomiting, Can't Take PO Stop: 10/09/18 13:51 Last Admin: 04/12/18 13:45 Dose: 4 mg Departure - Departure Disposition: [facility] Acute Clinical Impression: Small bowel obstruction Condition: Good
[2018-04-11 23:36] LABS: PLATELET COUNT 192 10^3/uL (150-400)
[2018-04-11 23:43] LABS: INR 0.92 (0.83-1.16); PROTIME(PATIENT) 12.6 SEC (12.0-15.0)
[2018-04-11] MEDS ORDERED: IOPAMIDOL (ISOVUE-300) 100 ML BTL ONE (23:53)
[2018-04-12] MEDS ORDERED: LORazepam 2 MG/ML INJ IVP ONE (00:48)
[2018-04-12] MEDS ORDERED: LORazepam 2 MG/ML INJ ONE (00:49)
[2018-04-12] MEDS ORDERED: HYDROmorphONE/DILAUDID 1 MG/ML INJ IVP ONE (01:04)
[2018-04-12] MEDS ORDERED: HYDROmorphONE/DILAUDID 1 MG/ML INJ IVP PRN ×2 (04:11→13:07)
[2018-04-12] MEDS: D5W 1/2 NS 1,000 ML IV SCH ×2 (04:36→20:34)
--- NOTE | 2018-04-12 12:03 | ASMTCMCOM ---
CM Note CM Note Notes: Pt is a 77 y/o female admitted for a SBO. Pt may require surgery. No therapies ordered at this time. CM to follow for d/c needs. Plan: TBD Date Signed: 04/12/2018 12:02 PM Electronically Signed By:FREEDOM Tate
--- NOTE | 2018-04-12 13:09 | SOAPPROG ---
SOAP Progress Note Assessment/Plan: Assessment/Plan: 77 Y F c hx of remote hysterectomy, recurrent SBO's requiring surgery on 3 occasions--last of which was July 2017, admitting c recurrent SBO. Continue bowel rest and supportive care. Seems to be improving. Will get SBFT. Discussed with Dr. Cobos. S: pain is much better. still comes in some waves. no nausea or vomiting. no flatus or BMs. O: alert, nad ncat, mmm chest clear rrr abd soft, centrally tender but no guarding, hypoactive BS 04/12/18 13:06 Objective: Vital Signs Temp Pulse Resp BP Pulse Ox 36.8 C 62 14 157/79 H 93 04/12/18 08:00 04/12/18 08:00 04/12/18 08:00 04/12/18 08:00 04/12/18 08:00 04/11/18 04/12/18 04/13/18 05:59 05:59 05:59 Intake Total 1000 Balance 1000 PT 12.6 SEC (12.0-15.0) 04/11/18 23:27 INR 0.92 (0.83-1.16) 04/11/18 23:27 ICD10 Worksheet Patient Problems: Problems Problem Status Onset Small bowel obstruction Acute Abdominal pain Active Essential hypertension Active Hyperglycemia Active Hypothyroidism Active Bowel obstruction Acute Pelvic fluid collection Acute
[2018-04-12] MEDS ORDERED: ONDANSETRON 4 MG/2 ML VIAL ONE (13:45)
[2018-04-12] MEDS ORDERED: ONDANSETRON 4 MG/2 ML VIAL IVP PRN (13:52)
--- NOTE | 2018-04-12 16:58 | PDMN ---
Medical Necessity Medical necessity: Pt meets IP criteria as of 04/12/2018 per MD and MCG M-[id number] ( intestinal obstruction); est los > 2 mn for ongoing tx and management of small bowel obstruction; requiring bowel rest and supportive care.
[2018-04-12] MEDS ORDERED: ACETAMINOPHEN 325 MG TAB PO PRN (20:05)
[2018-04-13] MEDS: D5W 1/2 NS 1,000 ML IV SCH (04:04)
--- NOTE | 2018-04-13 10:28 | SOAPPROG ---
SOAP Progress Note Assessment/Plan: Assessment/Plan: 77 Y F c hx of remote hysterectomy, recurrent SBO's requiring surgery on 3 occasions--last of which was July 2017, admitting c recurrent SBO. Patient's symptoms and AXR show improvement this am. Tolerating clears. SBFT shows passage, albeit slow, of contrast. Will advance to light diet. If tolerates then she may d/c to home. Patient is very well versed in SBO symptoms. S: pain resolved. no n/v. +much stool with contrast since yesterday's study. O: alert, nad ncat, mmm chest clear rrr abd soft, less tender, +hypoactive BS. 04/13/18 10:25 Objective: Vital Signs Temp Pulse Resp BP Pulse Ox 36.4 C 61 16 128/65 H 95 04/13/18 07:49 04/13/18 07:49 04/13/18 07:49 04/13/18 07:49 04/13/18 07:49 04/12/18 04/13/18 04/14/18 05:59 05:59 05:59 Intake Total 1100 Output Total 1150 Balance -50 PT 12.6 SEC (12.0-15.0) 04/11/18 23:27 INR 0.92 (0.83-1.16) 04/11/18 23:27 ICD10 Worksheet Patient Problems: Problems Problem Status Onset Small bowel obstruction Acute Abdominal pain Active Essential hypertension Active Hyperglycemia Active Hypothyroidism Active Bowel obstruction Acute Pelvic fluid collection Acute
[2018-04-13 11:35] VITALS: BP 142/64
--- NOTE | 2018-04-13 13:49 | GHP ---
DATE OF ADMISSION: 04/12/2018 HISTORY OF PRESENT ILLNESS: Patient is a 77-year-old female, who presents with crampy abdominal pain , and a CT scan suggesting a small bowel obstruction. She has had multiple small-bowel obstructions. She does have some constipation as well. She has had surgery at least once for bowel obstruction. She has had multiple other surgeries including a colectomy. At the present time, she is not distend ed, and not vomiting, but she is slightly distended with bowel sounds, and minimal tenderness. She h as a well-healed midline scar. PAST MEDICAL HISTORY: 1. History of bowel obstructions. 2. Hypertension. 3. Diabetes. 4. Thyroid disease. 5. Pelvic abscess with drainage. 6. Multiple abdominal surgeries including cholecystectomy, appendectomy, colectomy, hysterectomy, sm all bowel obstruction. SOCIAL HISTORY: She is a nonsmoker. FAMILY HISTORY: Noncontributory. REVIEW OF SYSTEMS: Negative on a full 10-point review, except as related to the HPI. Specifically, she does not smoke. PHYSICAL EXAMINATION: GENERAL: An alert, cooperative 77-year-old female in no acute distress. HEAD AND NECK: Revealed no icterus, PERRLA, no oral lesions, no adenopathy. NECK: Supple, nontender, w ithout bruits. CHEST: Clear and symmetric. CARDIAC: Regular rhythm without murmurs. ABDOMEN: So ft, minimally distended. Some bowel sounds. Mildly tender by her midline incision. No obvious deja ias. EXTREMITIES: Benign with full range of motion, full pulses. NEUROLOGIC: Physiologic and symm etric. PSYCH: Reveals her to be oriented, alert, and cooperative. IMPRESSION: Recurrent small bowel obstruction. PLAN: Admit for observation. She may possibly need a surgery if she does not improve. We have not placed an NG tube yet because she is only minimally distended, and not vomiting. /[id number]/MODL
== END 2018-04-13 12:00 | disposition home or self-care (01) | DRG 390 ==
LOC: F3E 04-12 03:17 → OBSVTOIN 04-12 15:48
PROVIDERS: ADMIT Surgery; ATTEND Surgery
DX: K56.609 Unspecified intestinal obstruction, unspecified as to partial versus complete obstruction (principal); I10 Essential (primary) hypertension; E11.9 Type 2 diabetes mellitus without complications; E03.9 Hypothyroidism, unspecified
CPT/HCPCS: 96374; J1170; J2060; J2405; Q9967

== ENCOUNTER → 2018-05-13 | Outpatient (CLI) | payer OTHER | LOC: BMCIMAGING 08:54 | PROVIDERS: ATTEND Internal Medicine | DX: Z12.31 Encounter for screening mammogram for malignant neoplasm of breast (principal); Z80.3 Family history of malignant neoplasm of breast ==

== ENCOUNTER 2018-08-14 17:12 | Observation (INO) | payer OTHER ==
[2018-08-14] MEDS ORDERED: NS 1,000 ML IV ONE (17:27)
[2018-08-14] MEDS ORDERED: MECLIZINE HCL 25 MG TAB PO ONE ×2 (17:27→18:18)
[2018-08-14] MEDS ORDERED: ONDANSETRON 4 MG/2 ML VIAL IVP ONE (17:27)
--- NOTE | 2018-08-14 17:32 | EDPHY ---
H & P Time Seen by Provider: 08/14/18 17:15 HPI/ROS: CHIEF COMPLAINT: Severe dizziness with nausea vomiting HISTORY OF PRESENT ILLNESS: Patient was at home making dinner when she developed sudden onset severe dizziness around 3:00 p.m.. She describes it as spinning, worse with movement better lying down closing her eyes. Shortly afterward she started having nausea and vomiting associated and called her daughter who called 911 who brought her to the emergency department after 4 mg IV Zofran. She denies headache or neck pain, double vision, chest pain or shortness of breath. No actual syncope. Did not get lightheaded or have passing out. Symptoms severe, associated with being unable to walk or stand. REVIEW OF SYSTEMS: Eye: no change in vision ENT: no sore throat, wears hearing aids, no ear symptoms. No tenderness or hearing loss. Cardiac: no chest pain or syncope Pulmonary: no cough or SOB Abdomen: No abdominal pain Musculoskeletal: No neck pain Skin: no rash Neuro: no headache Constitutional: no fever : no urinary symptoms A comprehensive 10 point review of systems is otherwise negative aside from elements mentioned in the history of present illness. PAST MEDICAL HISTORY: Includes hypothyroid, diabetes, cholesterol, colon resection appendectomy and cholecystectomy. Social history: Daughter here with patient General Appearance: Alert and conversant, cooperative. Eyes: No scleral icterus. Hearing aids in place. Pupils equal reactive extraocular motion intact nystagmus horizontal looking to the right which reproduces symptoms. ENT, Mouth: Normal mucous membranes. Respiratory: Normal respiratory effort, breath sounds equal, lungs are clear to auscultation. Cardiovascular: Regular rate and rhythm. Gastrointestinal: Abdomen is soft and non tender. Neurological: Alert, face symmetric, normal motor and sensory in extremities. Normal [id number] bilaterally with no pronator drift. Fluent speech. Can lift each leg off the bed independently. Skin: Warm and dry, no rashes. Musculoskeletal: No peripheral edema. Psychiatric: Not agitated. Emergency Department course/MDM: Patient presents with classic symptoms of acute peripheral vertigo without red flags to suggest that she is at high risk for vertebral dissection or cerebellar stroke or intracranial hemorrhage. Plan for antiemetics and oral meclizine, serial exam. 1850: Legs restless, walk to the bathroom it very unsteady on her feet, will be admitted for treatment of symptoms. 25 mg IV Benadryl, more likely reaction to getting IV Phenergan. Smoking Status: Former smoker Constitutional: Initial Vital Signs Temperature (C) 36.3 C 08/14/18 17:16 Heart Rate 56 L 08/14/18 17:16 Respiratory Rate 18 08/14/18 17:16 Blood Pressure 179/82 H 08/14/18 17:16 O2 Sat (%) 96 08/14/18 17:16 O2 Delivery Mode Room Air Allergies/Adverse Reactions: No Known Allergies Allergy (Verified 08/14/18 17:18) Home Medications: Medication Instructions Recorded Levothyroxine [Synthroid 50 mcg 50 mcg PO SUSA 12/04/11 (*)] Rosuvastatin Calcium [Crestor 20mg 20 mg PO DAILY 01/25/14 (*)] metFORMIN HCL [Glucophage 500 mg 500 mg PO BIDMEAL 12/17/15 (*)] Levothyroxine [Synthroid 75 mcg 75 mcg PO MOTUWETHFR 12/19/15 (*)] Aspirin [Aspirin 81mg (*)] 81 mg PO DAILY 04/12/18 Cholecalciferol Vit D3 [Vitamin D3 1,000 units PO DAILY 04/12/18 (*)] Losartan Potassium [Cozaar 25 mg 25 mg PO DAILY 04/12/18 (*)] [place]-3 Fatty Acids [Fish Oil 1000 1,000 mg PO DAILY 18 mg (*)] Vitamin B Complex [Vitamin B 1 each PO DAILY 04/12/18 Complex (OTC)] Medical Decision Making Differential Diagnosis: Differential diagnosis considered for dizziness including but not limited to vascular dissection, peripheral and central causes of vertigo, orthostatic causes including dehydration, and blood loss. Consult/Admit Bed Type: Dr. Fung hospitalist 4026 - Data Points Laboratory Results: Laboratory Results 08/14/18 17:21 08/14/18 17:21 08/14/18 08/14/18 17:21 17:21 WBC 8.79 10^3/uL 10^3/uL (3.80-9.50) RBC 4.70 10^6/uL 10^6/uL (4.18-5.33) Hgb 13.6 g/dL g/dL (12.6-16.3) Hct 42.7 % % (38.0-47.0) MCV 90.9 fL fL (81.5-99.8) MCH 28.9 pg pg (27.9-34.1) MCHC 31.9 g/dL L g/dL (32.4-36.7) RDW 13.2 % % (11.5-15.2) Plt Count 204 10^3/uL 10^3/uL (150-400) MPV 11.4 fL fL (8.7-11.7) Neut % (Auto) 49.2 % % (39.3-74.2) Lymph % (Auto) 34.4 % % (15.0-45.0) [place] % (Auto) 11.0 % % (4.5-13.0) Eos % (Auto) 4.1 % % (0.6-7.6) Baso % (Auto) 1.0 % % (0.3-1.7) Nucleat RBC Rel Count 0.0 % % (0.0-0.2) Absolute Neuts (auto) 4.32 10^3/uL 10^3/uL (1.70-6.50) Absolute Lymphs (auto) 3.02 10^3/uL H 10^3/uL (1.00-3.00) Absolute Monos (auto) 0.97 10^3/uL H 10^3/uL (0.30-0.80) Absolute Eos (auto) 0.36 10^3/uL 10^3/uL (0.03-0.40) Absolute Basos (auto) 0.09 10^3/uL 10^3/uL (0.02-0.10) Absolute Nucleated RBC 0.00 10^3/uL 10^3/uL (0-0.01) Immature Gran % 0.3 % % (0.0-1.1) Immature Gran # 0.03 10^3/uL 10^3/uL (0.00-0.10) Sodium 139 mEq/L mEq/L (135-145) Potassium 4.4 mEq/L mEq/L (3.5-5.2) Chloride 108 mEq/L mEq/L (97-110) Carbon Dioxide 23 mEq/l mEq/l (22-31) Anion Gap 8 mEq/L mEq/L (6-14) BUN 24 mg/dL H mg/dL (7-23) Creatinine 0.6 mg/dL mg/dL (0.6-1.0) Estimated GFR > 60 Glucose 121 mg/dL H mg/dL (70-100) Calcium 10.0 mg/dL mg/dL (8.5-10.4) Medications Given: Discontinued Medications Sodium Chloride (Ns) 1,000 mls @ 0 mls/hr IV EDNOW ONE; Wide Open PRN Reason: Protocol Stop: 08/14/18 17:28 Last Admin: 08/14/18 17:32 Dose: 1,000 mls Meclizine HCl (Meclizine Hcl) 25 mg PO EDNOW ONE Stop: 08/14/18 17:28 Last Admin: 08/14/18 17:32 Dose: 25 mg Meclizine HCl (Meclizine Hcl) 25 mg PO EDNOW ONE Stop: 08/14/18 18:19 Last Admin: 08/14/18 18:26 Dose: 25 mg Ondansetron HCl (Zofran) 4 mg IVP EDNOW ONE Stop: 08/14/18 17:28 Last Admin: 08/14/18 17:32 Dose: 4 mg Promethazine HCl (Phenergan) 12.5 mg IVP EDNOW ONE Stop: 08/14/18 17:45 Last Admin: 08/14/18 17:47 Dose: 12.5 mg Departure - Departure Disposition: [facility] Acute Clinical Impression: Vertigo Condition: Good
[2018-08-14] MEDS ORDERED: PROMETHAZINE HCL 25 MG/ML INJ IVP ONE (17:44)
[2018-08-14 17:50] LABS: PLATELET COUNT 204 10^3/uL (150-400)
[2018-08-14] MEDS ORDERED: ONDANSETRON DISINTEGRATING 4 MG TAB PO PRN (20:46)
[2018-08-14] MEDS ORDERED: ACETAMINOPHEN 325 MG TAB PO PRN (20:46)
[2018-08-14] MEDS ORDERED: ONDANSETRON 4 MG/2 ML VIAL IVP PRN (20:46)
[2018-08-14] MEDS ORDERED: PROMETHAZINE HCL 25 MG/ML INJ IVP PRN (20:46)
[2018-08-14] MEDS ORDERED: MECLIZINE HCL 12.5 MG TAB PO PRN (20:50)
[2018-08-14] MEDS ORDERED: ZOLPIDEM TARTRATE 5 MG TAB PO PRN (20:50)
[2018-08-14] MEDS ORDERED: LEVOTHYROXINE 50 MCG TAB PO SCH (21:00)
[2018-08-14] MEDS: metFORMIN HCL 500 MG TAB PO SCH (21:19)
--- NOTE | 2018-08-14 21:37 | GHP ---
[f rep st] HISTORY AND PHYSICAL DATE OF ADMISSION: 08/14/2018 HISTORY OF PRESENT ILLNESS: The patient is a pleasant 78-year-old female with past medical history o f hypothyroidism, prediabetes and recurrent small bowel obstructions, who presents to the hospital wi th an episode of acute onset dizziness. She was making dinner around 3 p.m. She did not have alcoho l. She felt like the room was spinning. She says she then became nauseated, had some vomiting. She did not have any focal neurologic signs. She had never had previous symptoms such as this. In the emergency department, she received meclizine, Phenergan and Benadryl. I am seeing her a coupl e hours later, and her symptoms have largely resolved. She is no longer nauseated and feels well whi le sitting in her bed. One of the reasons she is being admitted, she is unable to walk. No fevers, chills, cough, sputum, nausea, vomiting, diarrhea. No sore throat. No rhinorrhea. REVIEW OF SYSTEMS: Complete 10-point review of systems conducted, negative except as noted in the HP I. PAST MEDICAL HISTORY: Hypothyroidism, diabetes, hypercholesterolemia, colon resection, appendectomy, cholecystectomy, lysis of adhesions. SOCIAL HISTORY: No tobacco, no alcohol. Originally from [place]. FAMILY HISTORY: Parents . ALLERGIES: No known drug allergies. HOME MEDICATIONS: Ambien, vitamin D3, levothyroxine, losartan, metformin, fish oil, rosuvastatin, vi tamin B complex. PHYSICAL EXAMINATION: PRESENTING VITALS: Temp 36.3, blood pressure 139/82, pulse 56, breathing 18 t imes a minute, 96% on room air. GENERAL: No acute distress. HEENT: Sclerae anicteric. Oropharynx clear. Mucous membranes moist. NECK: Supple. No lymphadenopathy or JVD. LUNGS: Clear to auscultation bilaterally. HEART: S1, S2. ABDOMEN: Soft, nontender, nondistended. LOWER EXTREMITIES: No edema. Calves nontender. NEUROLOGIC: Nonfocal. Cranial nerves 2-12 are intact. She does not have any focal weakness. There is no nystagmus. LABORATORY DATA: CBC is normal. Chem-7: Sodium 139, potassium 4.4, chloride 108, bicarb 22, BUN 24 , creatinine 0.6, glucose 121. There is no imaging. I have discussed the case Dr. Otoniel Alonzo. ASSESSMENT/PLAN: This is a 78-year-old female with peripheral vertigo. 1. Vertigo. This is likely peripheral vertigo. She has no focal symptoms that resolved with mecliz ine, which we will continue on a p.r.n. basis. I think it is reasonable at this point in time to hol d off on advanced imaging given her rapid resolution of symptoms. This is not consistent with a stro ke. I discussed this aspect of her care with Dr. Alonzo. 2. Dry mouth. The patient has a dry mouth. She received 3 anticholinergic medicines in the emergen cy department, and this is likely the cause of this. 3. Hypertension. Will continue her medications. 4. Hypothyroidism. Continue her medications. 5. History of small bowel obstruction. She has a benign abdominal exam today. DISPOSITION: Observation status. /[id number]/MODL
[2018-08-15] MEDS ORDERED: MELATONIN 3 MG TAB PO PRN (01:30)
[2018-08-15] MEDS ORDERED: LEVOTHYROXINE 75 MCG TAB PO SCH ×2 (06:00→20:49)
[2018-08-15 08:15] VITALS: BP 139/68
--- NOTE | 2018-08-15 08:44 | PDDCSUM ---
Discharge Summary Discharge Summary: DISCHARGE DIAGNOSES: * Acute vertigo suspected cause is viral labyrinthitis, resolved HOSPITAL COURSE SUMMARY: This patient has suffered abrupt onset of severe vertigo with intractable nausea vomiting on the day of admission. She presented to the ER was treated there but had persistent nausea vomiting and vertigo symptoms. There was no history of head injury, no change in hearing and no tinnitus, and there were no other neurologic symptoms to suggest a bulbar cause of her vertigo. She was admitted to the hospital for overnight observation with IV hydration IV antiemetics. At this time her symptoms have completely resolved and she has had no antiemetic medicine for several hours. She is up walking and is hungry for breakfast. She seems ready for discharge. On my examination there is no nystagmus, normal gait, and no other neurologic findings. PENDING TEST RESULTS: None MEDICATION CHANGES: Addition of p.r.n. Zofran and meclizine FOLLOW-UP PLAN: With her primary care physician to 4 weeks INSTRUCTIONS: No driving today and no driving until symptoms are clearly completely resolved Keep well hydrated Greater than 35 minutes bedside and care coordination time today
[2018-08-15] MEDS ORDERED: VITAMIN B COMPLEX 1 EA CAP/TAB PO SCH (09:00)
[2018-08-15] MEDS ORDERED: ROSUVASTATIN CALCIUM 20 MG TAB PO SCH (09:00)
[2018-08-15] MEDS ORDERED: CHOLECALCIFEROL VIT D3 1,000 UNITS TAB PO SCH (09:00)
[2018-08-15] MEDS ORDERED: LOSARTAN POTASSIUM 25 MG TAB PO SCH (09:00)
[2018-08-15] MEDS ORDERED: OMEGA-3 FATTY ACIDS 1,000 MG CAP PO SCH (09:00)
[2018-08-15] MEDS: metFORMIN HCL 500 MG TAB PO SCH (10:07)
[2018-08-20] MEDS ORDERED: LEVOTHYROXINE 50 MCG TAB PO SCH (06:00)
== END 2018-08-15 10:42 | disposition home or self-care (01) ==
LOC: EDUNIT# → F3E 20:10
PROVIDERS: ADMIT Internal Medicine; ATTEND Internal Medicine
DX: R42 Dizziness and giddiness (principal); R68.2 Dry mouth, unspecified; E03.9 Hypothyroidism, unspecified; E78.00 Pure hypercholesterolemia, unspecified; Z90.49 Acquired absence of other specified parts of digestive tract
CPT/HCPCS: 97161; G0378; J1200; J2405; J2550; 96374